=== PATIENT | male | born 1950 | race Caucasian/White ===

== ENCOUNTER 2017-12-02 08:26 | Emergency (ER) | payer MEDICARE, OTHER, SELFPAY ==
[2017-12-02] VITALS (21 sets, daily range): BP systolic 93–159; BP diastolic 48–99; PULSE 62–139; RESP 12–18; TEMP 36.7; O2SAT 93–100; BMI 25.0
--- NOTE | 2017-12-02 08:45 | ED.ARRPALP ---
HPI - Arrhythmia/Palpitations General Chief Complaint: Arrhythmia/Palpitations Stated Complaint: tachycardia Time Seen by Provider: 12/02/17 08:36 Source: patient Mode of arrival: ambulatory Limitations: no limitations History of Present Illness HPI narrative: 66-year-old male with a history atrial fibrillation on Coumadin presents to the emergency department with a chief complaint of palpitations and rapid heart rate since this morning. He denies chest pain nor shortness of breath. He is not dizzy nor weak or lightheaded. He has had cardioversion 3 times in his history but not since 2010. He states he recently switched from diltiazem to her rapid male due to cost MD complaint: rapid heart beat, heart racing and palpitations Onset (ago): hour(s) Duration: constant Severity: moderate Arrhythmia history: atrial fibrillation and on anti-coagulants Associated symptoms: denies other symptoms Related Data Home Medications Medication Instructions Recorded Confirmed aspirin 81 mg PO DAILY #0 04/06/13 12/02/17 insulin regular human [Humulin R 8 u SUB-Q BID #0 04/06/13 12/02/17 Regular U-100 Insuln] insulin glargine [Lantus U-100 6 unit SUB-Q BEDTIME 12/02/17 12/02/17 Insulin] insulin glargine [Lantus U-100 35 unit SUB-Q DAILY 12/02/17 12/02/17 Insulin] oxybutynin chloride 5 mg PO DAILY 12/02/17 12/02/17 quinapril-hydrochlorothiazide 2 tab PO DAILY 12/02/17 12/02/17 tamsulosin 0.8 mg PO DAILY 12/02/17 12/02/17 verapamil 120 mg PO DAILY 12/02/17 12/02/17 warfarin 5 mg PO DAILY 12/02/17 12/02/17 zolpidem 5 mg PO BEDTIME PRN 12/02/17 12/02/17 Allergies Allergy/AdvReac Type Severity Reaction Status Date / Time Sorsvoa-Jst-Dda Reductase AdvReac Intermediate Muscle Pain Verified 12/02/17 10:43 Inhibitor Review of Systems Review of Systems All systems reviewed & are unremarkable except as noted in HPI and below Constitutional Denies chills, Denies fever(s), Denies lethargy and Denies weakness Eyes Denies change in vision, Denies eye discharge, Denies irritation and Denies loss of vision ENT Ears, Nose, Mouth, and Throat: Denies change in voice, Denies neck pain and Denies sore throat Cardiovascular Denies chest pain, Denies irregular heart rhythm, Denies lightheadedness, Denies palpitations, Denies dyspnea, Denies dyspnea on exertion and Denies orthopnea Respiratory Denies cough, Denies dyspnea, Denies dyspnea on exertion and Denies wheezing Gastrointestinal Gastrointestinal: Denies abdominal pain, Denies change in bowel habits, Denies diarrhea, Denies nausea and Denies vomiting Genitourinary Denies hematuria, Denies flank pain, Denies urinary incontinence and Denies urinary urgency Musculoskeletal Denies neck pain Integumentary/Breasts Denies pruritus, Denies erythema, Denies rash and Denies wounds Neurologic Denies confusion, Denies loss of vision and Denies weakness Psychiatric Denies anxiety, Denies confusion, Denies depression, Denies homicidal ideation and Denies suicidal ideation Endocrine Denies palpitations Hematologic/Lymphatic Denies easy bruising Allergic/Immunologic Denies wheezing PFSH Medical History Anticoagulant long-term use (Acute) Atrial fibrillation and flutter (Acute) Diabetes (Acute) High blood pressure (Acute) High cholesterol (Acute) Exam Initial Vital Signs Initial Vital Signs: Vital Signs Temperature 98.1 F 12/02/17 08:36 Pulse Rate 139 H 12/02/17 08:36 Respiratory Rate 14 12/02/17 08:36 Blood Pressure 159/99 H 12/02/17 08:36 Pulse Oximetry 100 12/02/17 08:36 Procedures Procedural Sedation Indication: cardioversion ASA Class: II Mallampati Airway Classification: Class I Preparation: research lab assistant applied, pulse oximeter, capnometry used, supplemental O2 applied, suction/airway equipment at bedside and IV secured IV Propofol dose (mg): 75 ED Sedation Level: Moderate (Concious) Patient Tolerated Procedure: Well Complications: none Additional Comments: Electrical Cardioversion: Indication: [] A time-out was completed verifying correct patient, procedure and site. Informed consent was obtained. The patient was judged to be a satisfactory for the procedure. An intravenous access was established. Monitoring equipment was set-up. The resuscitative cart was nearby. Anesthesia: The patient was given an intravenous dose of [propofol 80 mg] After satisfactory anesthesia was achieved, the procedure was performed. The paddles were placed in the standard position. Synchronized, direct current electrical cardioversion was performed with [50 joules]. The patient tolerated the procedure well. There were no complications. Post Procedure: Successful cardioversion [was achieved.] Post procedure cardiac monitoring demonstrated [normal sinus rhythm in the 60s]. Course Orders Ordered: ED Orders 12/02/17 08:45 Basic Metabolic Panel Stat Complete Blood Count AUTO DIFF Stat Magnesium Stat Thyroid Stimulating Hormone Stat Troponin with CK Cardiac Panel Stat Sodium Chloride (Normal Saline 0.9%) 1,000 mls @ 150 mls/hr IV CONT STEPHY Last Admin: 12/02/17 10:43 Dose: 150 mls/hr Discontinued Medications Diltiazem HCl (Cardizem) 10 mg IV NOW ONE Stop: 12/02/17 10:52 Last Admin: 12/02/17 10:53 Dose: 10 mg Propofol (Diprivan) 75 mg 1 mg/kg (75 mg) IV NOW ONE Stop: 12/02/17 12:03 Last Admin: 12/02/17 12:11 Dose: 75 mg Vital Signs - 8 hr 12/02/17 08:36 12/02/17 09:11 12/02/17 10:06 Temperature 98.1 F Pulse Rate 139 H 88 80 Respiratory Rate 14 14 14 Blood Pressure 159/99 H Blood Pressure [Left Arm] 138/88 H 132/82 H Pulse Oximetry 100 99 99 12/02/17 10:41 12/02/17 10:53 12/02/17 11:00 Temperature Pulse Rate 136 H 122 H 89 Respiratory Rate 14 17 Blood Pressure 124/82 H Blood Pressure [Left Arm] 93/64 137/53 H Pulse Oximetry 99 12/02/17 11:11 12/02/17 11:34 12/02/17 12:08 Temperature Pulse Rate 87 126 H 114 H Respiratory Rate 12 14 12 Blood Pressure Blood Pressure [Left Arm] 137/53 H 134/88 H Pulse Oximetry 99 99 12/02/17 12:21 12/02/17 12:30 Temperature Pulse Rate 62 65 Respiratory Rate Blood Pressure Blood Pressure [Left Arm] 134/74 H 136/78 H Pulse Oximetry 93 97 MDM - Arrhythmia/Palpitations Lab Data Result diagrams: 12/02/17 08:45 12/02/17 08:45 Lab Results 12/02/17 12/02/17 12/02/17 Range/Units 08:45 08:45 08:45 WBC 7.0 (4.5-11.0) X10^3/uL RBC 4.94 (4.5-5.9) X10^6/uL Hgb 15.4 (13.5-17.5) g/dL Hct 44.5 (41-53) % MCV 90.2 (80-100) fL MCH 31.1 (26-34) PG MCHC 34.5 (30-36) % RDW 13.2 (11.6-14.8) % Plt Count 296 (150-400) X10^3/uL Neut % (Auto) 61.1 (50-75) % Lymph % (Auto) 25.2 (25-40) % [place] % (Auto) 11.0 (3-14) % Eos % (Auto) 1.9 L (2-4) % Baso % (Auto) 0.8 (0-2) % Neut # (Auto) 4300 (0567-1474) /uL Sodium 135 L (137-145) mmol/L Potassium 4.0 (3.4-5.1) mmol/L Chloride 95 L (98-107) mmol/L Carbon Dioxide 28 (22-32) mmol/L BUN 17 (9-20) mg/dL Creatinine 0.90 (0.66-1.25) mg/dL Estimated GFR > 60.0 (>60) mL/min BUN/Creatinine Ratio 18.9 (6-22) Glucose 100 (80-110) mg/dL Calcium 9.8 (8.4-10.2) mg/dL Magnesium 2.0 (1.6-2.3) mg/dL Total Creatine Kinase 102 (55-170) U/L CK-MB (CK-2) 1.78 (<2.37) ng/mL CK-MB (CK-2) Rel Index 1.7 (1.5-5.0) % Troponin I < 0.012 (0.01-0.034) ng/mL TSH 2.78 (0.47-4.68) uIU/mL Discharge Plan Departure Patient Disposition: Home, Self-Care Clinical Impression: Atrial flutter Instructions: DI for Atrial Flutter Activity Restrictions/Additional Instructions: *You have been diagnosed with [ rapid atrial flutter ] *What to do: *Take medications as directed *Follow up with your primary care provider in 2-3 days *Return to ER if you should have any new, worsening or concerning symptoms Prescriptions: No Action insulin regular human [Humulin R Regular U-100 Insuln] 100 UNIT/1 ML solution 8 u Sub-Q BID Qty: 0 RF: 0 aspirin 81 MG tablet,delayed release (DR/EC) 81 mg PO DAILY Qty: 0 RF: 0 verapamil 120 mg Tablet Extended Release 120 mg PO DAILY RF: 0 insulin glargine [Lantus U-100 Insulin] 100 unit/mL Solution 35 unit SUB-Q DAILY RF: 0 insulin glargine [Lantus U-100 Insulin] 100 unit/mL Solution 6 unit SUB-Q BEDTIME RF: 0 tamsulosin 0.4 mg Capsule,Extended Release 24hr 0.8 mg PO DAILY RF: 0 warfarin 5 mg Tablet 5 mg PO DAILY RF: 0 zolpidem 5 mg Tablet 5 mg PO BEDTIME PRN (Reason: Insomnia) RF: 0 quinapril-hydrochlorothiazide 20-12.5 mg Tablet 2 tab PO DAILY RF: 0 oxybutynin chloride 5 mg Tablet 5 mg PO DAILY RF: 0
[2017-12-02 09:00] LABS: Add Manual Diff / Slide Review NO; Basophils Percent Auto 0.8 % (0-2); Eosinophils Percent Auto 1.9 % (2-4); Hematocrit 44.5 % (41-53); Hemoglobin 15.4 g/dL (13.5-17.5); Lymphocytes Percent Auto 25.2 % (25-40); Mean Corpuscular HGB Conc 34.5 % (30-36); Mean Corpuscular Hemoglobin 31.1 PG (26-34); Mean Corpuscular Volume 90.2 fL (80-100); Neutrophils Absolute Auto 4300 /uL (3000-5900); Neutrophils Percent Auto 61.1 % (50-75); Platelet Count 296 X10^3/uL (150-400); Red Blood Cell Count 4.94 X10^6/uL (4.5-5.9); Red Cell Distribution Width 13.2 % (11.6-14.8)
[2017-12-02 09:07] LABS: BUN Creatinine Ratio 18.9 (6-22); Blood Urea Nitrogen 17 mg/dL (9-20); Calcium 9.8 mg/dL (8.4-10.2); Carbon Dioxide 28 mmol/L (22-32); Chloride 95 mmol/L (98-107); Creatine Kinase 102 U/L (55-170); Estimated Glomerular Filt Rate > 60.0 mL/min (>60); Glucose 100 mg/dL (80-110); HEMOLYSIS 45 (0-50); Sodium 135 mmol/L (137-145)
[2017-12-02 09:22] LABS: CKMB % Relative Index 1.7 % (1.5-5.0); Creatine Kinase MB 1.78 ng/mL (<2.37)
[2017-12-02 09:30] LABS: Troponin I < 0.012 ng/mL (0.01-0.034)
[2017-12-02 09:43] LABS: Thyroid Stimulating Hormone 2.78 uIU/mL (0.47-4.68)
[2017-12-02] MEDS: SODIUM CHLORIDE 0.9% 1,000 ML 150 ML IV (10:43)
[2017-12-02] MEDS: dilTIAZem 25 MG/5 ML SDV 10 MG IV (10:53)
[2017-12-02] MEDS: PROPOFOL 200 MG/20 ML VIAL 75 MG IV (12:11)
== END 2017-12-02 13:08 | disposition home or self-care (01) ==
PROVIDERS: Emergency Provider Emergency Medicine; Family Provider Registered Nurse; PCP Registered Nurse
DX: I48.92 Unspecified atrial flutter (principal)
CPT/HCPCS: 36591; 80048; 82550; 82553; 83735; 84443; 84484; 85025; 92960; 93005; 93041; 94770; 96361; 96374; 96375; 99152; 99285; J2704

== ENCOUNTER → 2018-03-06 07:13 | Outpatient (CLI) | payer MEDICARE, OTHER, SELFPAY ==
[2018-03-06 08:08] LABS: Add Manual Diff / Slide Review NO; Basophils Percent Auto 0.4 % (0-2); Eosinophils Percent Auto 4.5 % (2-4); Hematocrit 43.1 % (41-53); Lymphocytes Percent Auto 21.3 % (25-40); Mean Corpuscular HGB Conc 34.8 % (30-36); Mean Corpuscular Hemoglobin 31.2 PG (26-34); Mean Corpuscular Volume 89.4 fL (80-100); Monocytes Percent Auto 8.8 % (3-14); Neutrophils Absolute Auto 4000 /uL (3000-5900); Platelet Count 300 X10^3/uL (150-400); Red Blood Cell Count 4.82 X10^6/uL (4.5-5.9); Red Cell Distribution Width 13.2 % (11.6-14.8); White Blood Cell Count 6.1 X10^3/uL (4.5-11.0)
[2018-03-06 08:21] LABS: Blood Urea Nitrogen 14 mg/dL (9-20); Calcium 9.7 mg/dL (8.4-10.2); Carbon Dioxide 34 mmol/L (22-32); Chloride 99 mmol/L (98-107); Cholesterol 197 mg/dL (140-199); Estimated Glomerular Filt Rate > 60.0 mL/min (>60); Glucose 101 mg/dL (80-110); HDL Cholesterol 78 mg/dL (40-60); HEMOLYSIS < 15 (0-50); LDL Cholesterol Calculated 111 mg/dL (<100); Potassium 4.2 mmol/L (3.4-5.1); Sodium 138 mmol/L (137-145); Triglycerides 42 mg/dL (35-150)
[2018-03-06 08:46] LABS: Hemoglobin A1C% w Est Avg Glu 7.1 % (4.0-6.0)
[2018-03-06 09:55] LABS: Thyroid Stimulating Hormone 2.86 uIU/mL (0.47-4.68)
== END ==
PROVIDERS: PCP Registered Nurse; Visit Provider Registered Nurse
DX: E10.9 Type 1 diabetes mellitus without complications (principal); I10 Essential (primary) hypertension; Z95.2 Presence of prosthetic heart valve; E78.00 Pure hypercholesterolemia, unspecified; R53.83 Other fatigue
CPT/HCPCS: 36415; 80048; 80061; 83036; 84443; 85025

== ENCOUNTER → 2018-08-18 07:51 | Outpatient (CLI) | payer MEDICARE, OTHER, SELFPAY ==
[2018-08-18 09:03] LABS: Hemoglobin A1C% w Est Avg Glu 7.6 % (4.0-6.0)
[2018-08-18 09:04] LABS: INR 3.3 (0.9-1.3); Prothrombin Time 38.7 SECONDS (10.1-12.7)
[2018-08-18 09:06] LABS: Add Manual Diff / Slide Review NO; Basophils Absolute Auto 0 /uL (0-100); Basophils Percent Auto 0.7 % (0-2); Eosinophils Absolute Auto 200 /uL (0-450); Eosinophils Percent Auto 2.5 % (2-4); Hemoglobin 14.3 g/dL (13.5-17.5); Lymphocytes Absolute Auto 1500 /uL (1100-4500); Lymphocytes Percent Auto 22.2 % (25-40); Mean Corpuscular HGB Conc 34.1 % (30-36); Mean Corpuscular Hemoglobin 30.6 PG (26-34); Mean Corpuscular Volume 89.8 fL (80-100); Monocytes Absolute Auto 700 /uL (0-900); Monocytes Percent Auto 10.5 % (3-14); Neutrophils Absolute Auto 4400 /uL (1500-7000); Neutrophils Percent Auto 64.1 % (50-75); Platelet Count 398 X10^3/uL (150-400); Red Blood Cell Count 4.68 X10^6/uL (4.5-5.9); Red Cell Distribution Width 13.2 % (11.6-14.8); White Blood Cell Count 6.8 X10^3/uL (4.5-11.0)
[2018-08-18 09:18] LABS: Creatinine Urine Random 140.7 mg/dL
[2018-08-18 09:24] LABS: Microalbumi Creatinin Ratio Ur 6.3 ug/mg CR (<30); Microalbumin Urine Random 0.9 mg/dL (0-1.6)
[2018-08-18 09:25] LABS: Alanine Aminotransferase 49 IU/L (21-72); Albumin 4.2 g/dL (3.5-5.0); Albumin Globulin Ratio 1.6 (1.0-2.8); Alkaline Phosphatase 55 U/L (38-126); Aspartate Aminotransferase 40 IU/L (17-59); BUN Creatinine Ratio 21.1 (6-22); Bilirubin Total 0.7 mg/dL (0.2-1.3); Blood Urea Nitrogen 19 mg/dL (9-20); Calcium 9.7 mg/dL (8.4-10.2); Carbon Dioxide 32 mmol/L (22-32); Chloride 95 mmol/L (98-107); Cholesterol 198 mg/dL (140-199); Estimated Glomerular Filt Rate > 60.0 mL/min (>60); Globulin 2.7 g/dL (1.7-4.1); Glucose 127 mg/dL (80-110); HDL Cholesterol 63 mg/dL (40-60); HEMOLYSIS < 15 (0-50); LDL Cholesterol Calculated 125 mg/dL (<100); Potassium 4.5 mmol/L (3.4-5.1); Sodium 135 mmol/L (137-145); Total Protein 6.9 g/dL (6.3-8.2); Triglycerides 51 mg/dL (35-150)
[2018-08-18 09:35] LABS: Vitamin D 25 Hydroxy (D3) 66.8 ng/mL (30.0-100.0)
[2018-08-18 09:49] LABS: Thyroid Stimulating Hormone 2.18 uIU/mL (0.47-4.68)
[2018-08-18 09:51] LABS: C-Reactive Protein Quant < 0.5 mg/dL (<1.0)
[2018-08-18 10:10] LABS: Vitamin B12 760 pg/mL (239-931)
== END ==
PROVIDERS: PCP Registered Nurse; Visit Provider Registered Nurse
DX: E10.9 Type 1 diabetes mellitus without complications (principal); I10 Essential (primary) hypertension; Z95.2 Presence of prosthetic heart valve; E78.00 Pure hypercholesterolemia, unspecified
CPT/HCPCS: 36415; 80053; 80061; 82043; 82306; 82570; 82607; 83036; 84153; 84443; 85025; 85610; 86140

== ENCOUNTER → 2018-08-22 07:11 | Outpatient (CLI) | payer MEDICARE, OTHER, SELFPAY ==
--- NOTE | 2018-08-22 | DI.MRI.S_ITS ---
PROCEDURE: MR HEAD/BRAIN WO CON INDICATIONS: Personal history of transient ischemic attack TECHNIQUE: Non-contrast axial T1 spin echo, axial T2 fast spin echo, sagittal and axial FLAIR, coronal T2 fast spin echo, axial gradient echo, axial diffusion and ADC through the brain. COMPARISON: [facility], CT, HEAD WITHOUT CONTRAST, 02/18/2014, 11:38. FINDINGS: Image quality: Excellent. CSF spaces: Ventricles appear symmetric in size and shape. Basal cisterns are patent. No extra-axial fluid collections. Brain: No intracranial bleeds or mass effects. There is cerebral volume loss for age. There are periventricular and deep white matter chronic small vessel ischemic changes. There is high FLAIR signal intensity within the posterior commissure of the corpus callosum measuring 20 mm transverse by 20 mm anteroposterior. Patchy high FLAIR signal intensity within the pericallosal white matter is present, with a few small lesions demonstrating long axes perpendicular to the lateral ventricular long axes. Brainstem appears normal. Diffusion-weighted images show no acute ischemic insults. No chronic ischemic insults. Normal intravascular flow voids are present. Skull and face: Calvarial bone marrow is normal in signal. Orbits are normal. Sinuses: A small amount of mastoid fluid is present bilaterally. IMPRESSION: 1. White matter disease within the callosal and pericallosal white matter as described above. This may represent multiple sclerosis. Clinical correlation/workup is recommended, if clinically indicated. Contrast-enhanced brain MRI is recommended for further assessment. 2. Mild volume loss and small vessel ischemic disease. Dictated by: Terry Cohen M.D. on 08/22/2018 at 10:27 Approved by: Terry Cohen M.D. on 08/22/2018 at 10:39
== END ==
PROVIDERS: PCP Registered Nurse; Visit Provider Registered Nurse
DX: R51 Headache (principal); H53.9 Unspecified visual disturbance; I48.91 Unspecified atrial fibrillation; Z86.73 Personal history of transient ischemic attack (TIA), and cerebral infarction without residual deficits
CPT/HCPCS: 70551

== ENCOUNTER → 2018-12-14 16:52 | Outpatient (CLI) | payer MEDICARE, OTHER, SELFPAY ==
[2018-12-18 16:00] LABS: Rubeola Measles IgG > 300.00 AU/mL (< 25.00)
[2018-12-19 07:47] LABS: Hepatitis A Antibody Total Reactive (Nonreactive); Hepatitis B Surf AB Imm QUANT < 5 mIU/mL (> 9)
== END ==
PROVIDERS: PCP Registered Nurse; Visit Provider Registered Nurse
DX: Z01.84 Encounter for antibody response examination (principal)
CPT/HCPCS: 36415; 86317; 86708; 86735; 86762; 86765

== ENCOUNTER → 2019-01-22 06:48 | Outpatient (CLI) | payer MEDICARE, OTHER, SELFPAY ==
[2019-01-22 08:03] LABS: Hematocrit 43.4 % (41-53); Hemoglobin 14.9 g/dL (13.5-17.5); Mean Corpuscular HGB Conc 34.2 % (30-36); Mean Corpuscular Volume 90.8 fL (80-100); Platelet Count 273 X10^3/uL (150-400); Red Blood Cell Count 4.79 X10^6/uL (4.5-5.9); Red Cell Distribution Width 13.4 % (11.6-14.8)
[2019-01-22 08:07] LABS: Hemoglobin A1C% w Est Avg Glu 8.1 % (4.0-6.0)
[2019-01-22 08:12] LABS: Alanine Aminotransferase 34 IU/L (21-72); Albumin 4.1 g/dL (3.5-5.0); Albumin Globulin Ratio 1.5 (1.0-2.8); Alkaline Phosphatase 48 U/L (38-126); Aspartate Aminotransferase 36 IU/L (17-59); Bilirubin Total 0.7 mg/dL (0.2-1.3); Blood Urea Nitrogen 18 mg/dL (9-20); Calcium 9.7 mg/dL (8.4-10.2); Carbon Dioxide 34 mmol/L (22-32); Chloride 98 mmol/L (98-107); Cholesterol 193 mg/dL (140-199); Estimated Glomerular Filt Rate > 60.0 mL/min (>60); Globulin 2.8 g/dL (1.7-4.1); Glucose 98 mg/dL (80-110); HDL Cholesterol 78 mg/dL (40-60); HEMOLYSIS < 15 (0-50); LDL Cholesterol Calculated 105 mg/dL (<100); Potassium 4.5 mmol/L (3.4-5.1); Sodium 138 mmol/L (137-145); Total Protein 6.9 g/dL (6.3-8.2); Triglycerides 51 mg/dL (35-150)
[2019-01-22 08:42] LABS: Prostate Specific Antigen 4.04 ng/mL (0.10-4.00)
== END ==
PROVIDERS: Family Provider Urology; PCP Registered Nurse; Visit Provider Internal Medicine Endocrinology, Diabetes & Metabolism
DX: E10.9 Type 1 diabetes mellitus without complications (principal); I10 Essential (primary) hypertension; E78.00 Pure hypercholesterolemia, unspecified; I48.91 Unspecified atrial fibrillation; R97.20 Elevated prostate specific antigen [PSA]; N40.1 Benign prostatic hyperplasia with lower urinary tract symptoms
CPT/HCPCS: 36415; 80053; 80061; 83036; 84153; 85027

== ENCOUNTER → 2019-05-17 06:56 | Outpatient (CLI) | payer MEDICARE, OTHER, SELFPAY ==
[2019-05-17 09:24] LABS: Alanine Aminotransferase 31 IU/L (<50); Cholesterol 226 mg/dL (140-199); HDL Cholesterol 82 mg/dL (40-60); LDL Cholesterol Calculated 135 mg/dL (<100); Triglycerides 47 mg/dL (35-150)
== END ==
PROVIDERS: Family Provider Registered Nurse; PCP Registered Nurse; Visit Provider Internal Medicine Endocrinology, Diabetes & Metabolism
DX: E10.9 Type 1 diabetes mellitus without complications (principal)
CPT/HCPCS: 36415; 80061; 84460

== ENCOUNTER 2019-05-29 13:55 | Emergency (ER) | payer MEDICARE, OTHER, SELFPAY ==
[2019-05-29 14:12] VITALS: BP 181/72; PULSE 69; RESP 18; TEMP 37.5; O2SAT 98; BMI 24.6
[2019-05-29 15:31] LABS: Add Manual Diff / Slide Review NO; Basophils Absolute Auto 0 /uL (0-100); Basophils Percent Auto 0.5 % (0-2); Eosinophils Absolute Auto 200 /uL (0-450); Eosinophils Percent Auto 2.3 % (2-4); Hematocrit 42.2 % (41-53); Hemoglobin 14.4 g/dL (13.5-17.5); Lymphocytes Absolute Auto 1200 /uL (1100-4500); Lymphocytes Percent Auto 16.7 % (25-40); Mean Corpuscular HGB Conc 34.2 % (30-36); Mean Corpuscular Hemoglobin 30.9 PG (26-34); Mean Corpuscular Volume 90.5 fL (80-100); Monocytes Absolute Auto 500 /uL (0-900); Monocytes Percent Auto 7.4 % (3-14); Neutrophils Absolute Auto 5200 /uL (1500-7000); Neutrophils Percent Auto 73.1 % (50-75); Platelet Count 278 X10^3/uL (150-400); Red Blood Cell Count 4.67 X10^6/uL (4.5-5.9); White Blood Cell Count 7.1 X10^3/uL (4.5-11.0)
[2019-05-29 15:40] LABS: Alanine Aminotransferase 29 IU/L (<50); Albumin 4.5 g/dL (3.5-5.0); Albumin Globulin Ratio 1.6 (1.0-2.8); Alkaline Phosphatase 56 U/L (38-126); Aspartate Aminotransferase 41 IU/L (17-59); Bilirubin Total 0.6 mg/dL (0.2-1.3); Blood Urea Nitrogen 19 mg/dL (9-20); Calcium 9.7 mg/dL (8.4-10.2); Carbon Dioxide 32 mmol/L (22-32); Chloride 96 mmol/L (98-107); Estimated Glomerular Filt Rate > 60.0 mL/min (>60); Globulin 2.9 g/dL (1.7-4.1); Glucose 189 mg/dL (80-110); HEMOLYSIS < 15 (0-50); Lipase 88 U/L (23-300); Potassium 4.1 mmol/L (3.4-5.1); Sodium 134 mmol/L (137-145); Total Protein 7.4 g/dL (6.3-8.2)
[2019-05-29 16:13] LABS: Bacteria Urine None Seen; RBC Urine None Seen (0-5/HPF); WBC Urine None Seen (0-5/HPF)
[2019-05-29 16:18] LABS: Culture Indicated Urine Cult Not Indicated; Urine Comments Microscopic Normal
--- NOTE | 2019-05-29 18:09 | ED_ITS ---
HPI - Abdominal Pain General Chief Complaint: Abdominal Pain Stated Complaint: ABDOMINAL PAIN Time Seen by Provider: 05/29/19 18:09 Source: patient Mode of arrival: Ambulatory Limitations: no limitations History of Present Illness HPI narrative: 68-year-old male comes to the ER with complaint of right upper quadrant pain that is particularly worse today but has been intermittent for last 5-7 days. Patient has had intermittent abdominal pain for the last 4-6 months. He will occasionally feel nauseated. No vomiting. No fevers, sometimes feels chilled. He states that his stools are typically solid to constipated but he has occasionally had liquidy stools. He denies black or bloody stools. He has had no urinary issues. He is on Coumadin for a [place] aortic valve, he is a insulin-dependent diabetic and takes medication for hypertension and red yeast rice for dyslipidemia. Patient denies any other surgeries besides his aortic valve. He is scheduled for a endoscopy and colonoscopy after the new year. Related Data Home Medications Medication Instructions Recorded Confirmed aspirin 81 mg PO DAILY #0 04/06/13 12/02/17 insulin regular human [Humulin R 8 u SUB-Q BID #0 04/06/13 12/02/17 Regular U-100 Insuln] insulin glargine [Lantus U-100 6 unit SUB-Q BEDTIME 12/02/17 12/02/17 Insulin] insulin glargine [Lantus U-100 35 unit SUB-Q DAILY 12/02/17 12/02/17 Insulin] oxybutynin chloride 5 mg PO DAILY 12/02/17 12/02/17 quinapril-hydrochlorothiazide 2 tab PO DAILY 12/02/17 05/29/19 tamsulosin 0.8 mg PO DAILY 12/02/17 05/29/19 verapamil 120 mg PO DAILY 12/02/17 12/02/17 warfarin 5 mg PO DAILY 12/02/17 05/29/19 diltiazem HCl [DILT-XR] 180 mg PO DAILY 05/29/19 05/29/19 enoxaparin 05/29/19 zolpidem 10 mg PO BEDTIME PRN 05/29/19 05/29/19 Allergies Allergy/AdvReac Type Severity Reaction Status Date / Time Bjghlmy-Zld-Uuj Reductase AdvReac Intermediate Muscle Pain Verified 05/29/19 14:12 Inhibitor Review of Systems Review of Systems ROS Unobtainable: All systems reviewed & are unremarkable except as noted in HPI and below Patient History Medical History (Updated 05/29/19 @ 19:43 by Candace Moura DO) Anticoagulant long-term use (Acute) Atrial fibrillation and flutter (Acute) Diabetes (Acute) High blood pressure (Acute) High cholesterol (Acute) Surgical History (Updated 05/29/19 @ 18:27 by Candace Moura DO) H/O aortic valve replacement (Acute) Social History Smoking Status: Never smoker Substance Use Type: does not use Exam Narrative Exam Narrative: GENERAL: Alert and oriented x three, well-nourished male in no a cute distress. HEENT: Head normocephalic, atraumatic, EOMI, pupils reactive, face symmetric, moist mucous membranes NECK: Supple, full range of motion CARDIOVASCULAR: Regular rate and rhythm without murmurs, rubs or gallops. RESPIRATORY: Breath sounds equal bilaterally, no wheezes rales or rhonchi. ABDOMEN: Soft, positive for right upper quadrant tenderness. Minimal right lower quadrant tenderness. Normoactive bowel sounds all 4 quadrants. No guarding or rebound, rigidity, no mass. Patient does have a blood sugar monitoring device on his right lower abdomen. : No CVA tenderness EXTREMITIES: Normal range of motion, no clubbing or edema. Neurovascularly intact NEUROLOGICAL: Cranial nerves II through XII grossly intact. Moving all extremities SKIN: Warm, dry, no petechiae, no rashes or lesions. Initial Vital Signs Initial Vital Signs: Vital Signs Temperature 99.5 F 05/29/19 14:12 Pulse Rate 69 05/29/19 14:12 Respiratory Rate 18 05/29/19 14:12 Blood Pressure 181/72 H 05/29/19 14:12 Pulse Oximetry 98 05/29/19 14:12 Course Orders Ordered: ED Orders 05/29/19 18:23 CT abdomen pelvis w con Stat Discontinued Medications Sodium Chloride (Normal Saline 0.9%) 1,000 mls @ 1,000 mls/hr IV BOLUS ONE Stop: 05/29/19 19:22 Last Infusion: 05/29/19 19:59 Dose: 1,000 mls/hr [facility] Admin: 05/29/19 19:37 Dose: 1,000 mls/hr Documented by: ARRINGTO Vital Signs Vital signs: Vital Signs - 8 hr 05/29/19 18:50 05/29/19 19:02 Pulse Rate 54 L 65 Respiratory Rate 16 21 Blood Pressure [Left Arm] 200/57 H Pulse Oximetry 100 100 MDM - Abdominal Pain Lab Data Attestation: I reviewed the patient's lab results. Result diagrams: 05/29/19 15:15 05/29/19 15:15 Labs: Lab Results 05/29/19 05/29/19 05/29/19 Range/Units 15:15 15:15 16:12 WBC 7.1 (4.5-11.0) X10^3/uL RBC 4.67 (4.5-5.9) X10^6/uL Hgb 14.4 (13.5-17.5) g/dL Hct 42.2 (41-53) % MCV 90.5 (80-100) fL MCH 30.9 (26-34) PG MCHC 34.2 (30-36) % RDW 13.0 (11.6-14.8) % Plt Count 278 (150-400) X10^3/uL Neut % (Auto) 73.1 (50-75) % Lymph % (Auto) 16.7 L (25-40) % [place] % (Auto) 7.4 (3-14) % Eos % (Auto) 2.3 (2-4) % Baso % (Auto) 0.5 (0-2) % Neut # (Auto) 5200 (7125-9730) /uL Lymph # (Auto) 1200 (4799-8330) /uL [place] # (Auto) 500 (0-900) /uL Eos # (Auto) 200 (0-450) /uL Baso # (Auto) 0 (0-100) /uL Sodium 134 L (137-145) mmol/L Potassium 4.1 (3.4-5.1) mmol/L Chloride 96 L (98-107) mmol/L Carbon Dioxide 32 (22-32) mmol/L BUN 19 (9-20) mg/dL Creatinine 1.00 (0.66-1.25) mg/dL Estimated GFR > 60.0 (>60) mL/min BUN/Creatinine Ratio 19.0 (6-22) Glucose 189 H (80-110) mg/dL Calcium 9.7 (8.4-10.2) mg/dL Total Bilirubin 0.6 (0.2-1.3) mg/dL AST 41 (17-59) IU/L ALT 29 (<50) IU/L Alkaline Phosphatase 56 (38-126) U/L Total Protein 7.4 (6.3-8.2) g/dL Albumin 4.5 (3.5-5.0) g/dL Globulin 2.9 (1.7-4.1) g/dL Albumin/Globulin Ratio 1.6 (1.0-2.8) Lipase 88 (23-300) U/L Urine RBC None seen (0-5/HPF) Urine WBC None seen (0-5/HPF) Urine Bacteria None seen (None) Ur Culture Indicated? Cult not indicated Micro UA Comment Microscopic normal Point of care testing: Urine Dip Bedside Urine Glucose 100 mg/dl Bedside Urine Bilirubin - Negative Bedside Urine Ketone - Negative Urine Specific [place] 1.015 Bedside Urine Occult Blood - Negative Bedside Urine pH 6.5 Bedside Urine Protein - Negative Bedside Urine Urobilinogen - Negative Bedside Urine Nitrite - Negative Bedside Urine Leukocytes - Negative Esterase Imaging Data CT scan - abdomen: Radiologist's impression: [place] [address] CT Scan Report Signed Patient: Manav Echeverria JMR#: [id number] : 1950Acct:[id number] Age/Sex: 68 / MDate of Service: 05/29/19 Loc: ED Accession Number: [id number] Procedure: CT abdomen pelvis w con Ordering Provider: Candace Moura D.O. PROCEDURE: CT ABDOMEN PELVIS W CON INDICATIONS: RUQ pain, intermittent TECHNIQUE: After the administration of intravenous contrast, 5 mm thick sections acquired from the diaphragm to the symphysis. 5 mm coronal and sagittal reformats were acquired. For radiation dose reduction, the following was used: automated exposure control, adjustment of mA and/or kV according to patient size. COMPARISON: None. FINDINGS: Image quality: Excellent. ABDOMEN: Lung bases: Left basilar scarring/atelectasis is seen. Right lung base is clear.. Heart size is normal. Solid organs: Liver is normal in size and enhancement. Gallbladder contains a small calcified stone in its dependent portion. No gallbladder wall thickening or pericholecystic fluid. There is no intrahepatic biliary ductal dilatation. Borderline prominent common bile that is seen measures up to 6 mm in diameter which is within normal limits for patient's age. Pancreas enhances normally. Spleen is normal in size and enhancement. No adrenal nodules. Kidneys demonstrate normal size and enhancement, without hydronephrosis. 5.5 cm exophytic cyst in lower pole of left kidney is seen. Peritoneum and bowel: Bowel loops demonstrate normal wall thickness and caliber. No free fluid or air. Mild fecal stasis throughout the colon is noted. Nodes and vessels: No retroperitoneal or mesenteric adenopathy by size criteria. Aorta and inferior vena cava are normal in size. Miscellaneous: No ventral hernias. PELVIS: Genitourinary: Bladder wall thickness is normal. Enlarged prostate gland is seen with mass effect on the floor of urinary bladder. Miscellaneous: No inguinal hernias or adenopathy. Bones: No suspicious bony lesions. No vertebral body compression fractures. Minimal retrolisthesis of L2 on L3 is seen. IMPRESSION: 1. Tiny gallstone. No CT evidence of acute cholecystitis. Borderline prominent common bile that which is still within upper limits of normal for patient's age. No gross intrahepatic biliary ductal dilatation. 2. Mild constipation. No bowel obstruction. No free fluid or free air. 3. No renal stone or hydronephrosis. Left renal cyst as above. 4. Enlarged prostate gland with mass effect on floor of urinary bladder. Dictated by: Jhon Acuna M.D. on 05/29/2019 at 19:28 Approved by: Jhon Acuna M.D. on 05/29/2019 at 19:32 MDM Narrative Medical decision making narrative: Patient comes in with complaint of right uppe r quadrant pain with intermittent symptoms over several months but particularly the last 5-7 days. Patient is mostly tender in the right upper quadrant, labs do not show any major abnormalities. We discussed ultrasound but he has had issues with his cecal valve and colon issues in the past so CT was selected. Patient's CT shows tiny gallstone, no evidence of acute cholecystitis. Borderline prominent common bile duct that is within the upper limits of normal for patient's age. Pancreas enhances normally. No gross intrahepatic biliary ductal dilation. Mild constipation with no bowel obstruction no free fluid or free air. No renal stone or hydro, left renal cyst as above. Enlarged prostate with mass effect on the floor of the urinary bladder. Discussed with patient I suspect that he is having more biliary issues which might be related to his very small gallstone. I would recommend he follow up with primary care or the doctor that is doing his endoscopy in the next several weeks. We discussed signs and to watch for and reasons to return emergently. Discharge Plan Departure Patient Disposition: Home Clinical Impression: Gallstone, Abdominal pain Discharge Date/Time: 05/29/19 19:55 Instructions: DI for Gallstones Activity Restrictions/Additional Instructions: Follow-up with her physician in the next week for recheck. Call for an appointment. Your CT shows a very small gallstone, no clear signs of infection of the gallbladder. There is an enlarged prostate and it is noted that you have a left renal cyst which she should share with your primary care physician. Return to the ER for fevers greater 100.4 F, rapidly worsening or new pain, persistent vomiting, black or bloody stools, passing out, lightheadedness, new chest pain or shortness of breath or other new or concerning symptoms. Prescriptions: No Action insulin regular human [Humulin R Regular U-100 Insuln] 100 UNIT/1 ML solution 8 u Sub-Q BID Qty: 0 RF: 0 aspirin 81 MG tablet,delayed release (DR/EC) 81 mg PO DAILY Qty: 0 RF: 0 verapamil 120 mg Tablet Extended Release 120 mg PO DAILY RF: 0 insulin glargine [Lantus U-100 Insulin] 100 unit/mL Solution 35 unit SUB-Q DAILY RF: 0 insulin glargine [Lantus U-100 Insulin] 100 unit/mL Solution 6 unit SUB-Q BEDTIME RF: 0 tamsulosin 0.4 mg Capsule,Extended Release 24hr 0.8 mg PO DAILY RF: 0 warfarin 5 mg Tablet 5 mg PO DAILY RF: 0 quinapril-hydrochlorothiazide 20-12.5 mg Tablet 2 tab PO DAILY RF: 0 oxybutynin chloride 5 mg Tablet 5 mg PO DAILY RF: 0 zolpidem 10 mg tablet 10 mg PO BEDTIME PRN (Reason: Insomnia) RF: 0 diltiazem HCl [DILT-XR] 180 mg capsule,ext.rel 24h degradable 180 mg PO DAILY RF: 0 enoxaparin 300 mg/3 mL Solution RF: 0 Referrals: Jose Mon ARNP [Primary Care Provider] -
--- NOTE | 2019-05-29 18:23 | DI.CT.S_ITS ---
PROCEDURE: CT ABDOMEN PELVIS W CON INDICATIONS: RUQ pain, intermittent TECHNIQUE: After the administration of intravenous contrast, 5 mm thick sections acquired from the diaphragm to the symphysis. 5 mm coronal and sagittal reformats were acquired. For radiation dose reduction, the following was used: automated exposure control, adjustment of mA and/or kV according to patient size. COMPARISON: None. FINDINGS: Image quality: Excellent. ABDOMEN: Lung bases: Left basilar scarring/atelectasis is seen. Right lung base is clear.. Heart size is normal. Solid organs: Liver is normal in size and enhancement. Gallbladder contains a small calcified stone in its dependent portion. No gallbladder wall thickening or pericholecystic fluid. There is no intrahepatic biliary ductal dilatation. Borderline prominent common bile that is seen measures up to 6 mm in diameter which is within normal limits for patient's age. Pancreas enhances normally. Spleen is normal in size and enhancement. No adrenal nodules. Kidneys demonstrate normal size and enhancement, without hydronephrosis. 5.5 cm exophytic cyst in lower pole of left kidney is seen. Peritoneum and bowel: Bowel loops demonstrate normal wall thickness and caliber. No free fluid or air. Mild fecal stasis throughout the colon is noted. Nodes and vessels: No retroperitoneal or mesenteric adenopathy by size criteria. Aorta and inferior vena cava are normal in size. Miscellaneous: No ventral hernias. PELVIS: Genitourinary: Bladder wall thickness is normal. Enlarged prostate gland is seen with mass effect on the floor of urinary bladder. Miscellaneous: No inguinal hernias or adenopathy. Bones: No suspicious bony lesions. No vertebral body compression fractures. Minimal retrolisthesis of L2 on L3 is seen. IMPRESSION: 1. Tiny gallstone. No CT evidence of acute cholecystitis. Borderline prominent common bile that which is still within upper limits of normal for patient's age. No gross intrahepatic biliary ductal dilatation. 2. Mild constipation. No bowel obstruction. No free fluid or free air. 3. No renal stone or hydronephrosis. Left renal cyst as above. 4. Enlarged prostate gland with mass effect on floor of urinary bladder. Dictated by: Jhon Acuna M.D. on 05/29/2019 at 19:28 Approved by: Jhon Acuna M.D. on 05/29/2019 at 19:32
[2019-05-29 18:50] VITALS: PULSE 54; RESP 16; O2SAT 100
[2019-05-29 19:02] VITALS: BP 200/57; PULSE 65; RESP 21; O2SAT 100
[2019-05-29] MEDS: SODIUM CHLORIDE 0.9% 1,000 ML 1000 ML IV (19:37)
== END 2019-05-29 19:55 | disposition home or self-care (01) ==
PROVIDERS: Emergency Medicine; Emergency Provider Emergency Medicine; Family Provider Registered Nurse; PCP Registered Nurse
DX: K80.80 Other cholelithiasis without obstruction (principal); R10.11 Right upper quadrant pain; R11.0 Nausea; Z95.2 Presence of prosthetic heart valve; Z79.01 Long term (current) use of anticoagulants
CPT/HCPCS: 36415; 74177; 80053; 81003; 81015; 83690; 85025; 99283; 99284; Q9967

== ENCOUNTER → 2019-08-28 06:47 | Outpatient (CLI) | payer MEDICARE, OTHER, SELFPAY ==
[2019-08-28 07:28] LABS: Hematocrit 39.4 % (41-53); Hemoglobin 13.4 g/dL (13.5-17.5); Mean Corpuscular HGB Conc 33.9 % (30-36); Mean Corpuscular Hemoglobin 30.2 PG (26-34); Mean Corpuscular Volume 89.1 fL (80-100); Platelet Count 335 X10^3/uL (150-400); Red Blood Cell Count 4.42 X10^6/uL (4.5-5.9); Red Cell Distribution Width 13.5 % (11.6-14.8); White Blood Cell Count 4.5 X10^3/uL (4.5-11.0)
[2019-08-28 07:32] LABS: Creatinine Urine Random 108.9 mg/dL
[2019-08-28 07:36] LABS: Hemoglobin A1C% w Est Avg Glu 6.1 % (4.0-6.0)
[2019-08-28 07:37] LABS: Microalbumi Creatinin Ratio Ur 18.3 ug/mg CR (<30)
[2019-08-28 07:38] LABS: Iron 60 ug/dL (49-181)
[2019-08-28 07:42] LABS: Blood Urea Nitrogen 17 mg/dL (9-20); Calcium 9.8 mg/dL (8.4-10.2); Carbon Dioxide 32 mmol/L (22-32); Chloride 97 mmol/L (98-107); Cholesterol 217 mg/dL (140-199); Estimated Glomerular Filt Rate > 60.0 mL/min (>60); Glucose 240 mg/dL (80-110); HDL Cholesterol 84 mg/dL (40-60); HEMOLYSIS < 15 (0-50); LDL Cholesterol Calculated 123 mg/dL (<100); Sodium 135 mmol/L (137-145); Triglycerides 52 mg/dL (35-150)
[2019-08-28 07:49] LABS: Total Iron Binding Capacity 421 ug/dL (261-462)
== END ==
PROVIDERS: Family Provider Registered Nurse; PCP Registered Nurse; Referring Provider Registered Nurse; Visit Provider Registered Nurse
DX: E10.9 Type 1 diabetes mellitus without complications (principal); E78.00 Pure hypercholesterolemia, unspecified
CPT/HCPCS: 36415; 80048; 80061; 82043; 82570; 83036; 83540; 83550; 85027

== ENCOUNTER → 2019-09-27 06:51 | Outpatient (CLI) | payer MEDICARE, OTHER, SELFPAY ==
[2019-09-27 07:28] LABS: Hematocrit 43.8 % (41-53); Hemoglobin 14.5 g/dL (13.5-17.5); Mean Corpuscular Hemoglobin 29.8 PG (26-34); Mean Corpuscular Volume 90.4 fL (80-100); Platelet Count 299 X10^3/uL (150-400); Red Blood Cell Count 4.85 X10^6/uL (4.5-5.9); White Blood Cell Count 5.4 X10^3/uL (4.5-11.0)
[2019-09-27 08:10] LABS: HEMOLYSIS < 15 (0-50); Iron 80 ug/dL (49-181)
[2019-09-27 08:21] LABS: Percent Iron Saturation 21 % (20-50); Total Iron Binding Capacity 382 ug/dL (261-462); Transferrin 303 mg/dL (206-381)
[2019-09-27 10:20] LABS: Ferritin 21 ng/mL (18-464)
== END ==
PROVIDERS: Family Provider Registered Nurse; PCP Registered Nurse; Referring Provider Registered Nurse; Visit Provider Registered Nurse
DX: D50.9 Iron deficiency anemia, unspecified (principal)
CPT/HCPCS: 36415; 82728; 83540; 83550; 85027

== ENCOUNTER → 2019-11-01 10:09 | Outpatient (CLI) | payer MEDICARE, OTHER, SELFPAY ==
[2019-11-01 12:30] LABS: Prostate Specific Antigen 4.25 ng/mL (0.10-4.00)
== END ==
PROVIDERS: Family Provider Registered Nurse; PCP Registered Nurse; Referring Provider Urology; Visit Provider Urology
DX: R39.9 Unspecified symptoms and signs involving the genitourinary system (principal); R35.1 Nocturia
CPT/HCPCS: 36415; 84153

== ENCOUNTER → 2019-11-07 06:54 | Outpatient (CLI) | payer MEDICARE, OTHER, SELFPAY ==
[2019-11-07 08:09] LABS: Hematocrit 43.5 % (41-53); Hemoglobin 14.8 g/dL (13.5-17.5); Mean Corpuscular HGB Conc 34.1 % (30-36); Mean Corpuscular Hemoglobin 30.1 PG (26-34); Mean Corpuscular Volume 88.2 fL (80-100); Platelet Count 273 X10^3/uL (150-400); Red Blood Cell Count 4.94 X10^6/uL (4.5-5.9); Red Cell Distribution Width 14.6 % (11.6-14.8); White Blood Cell Count 4.7 X10^3/uL (4.5-11.0)
[2019-11-07 08:33] LABS: Blood Urea Nitrogen 14 mg/dL (9-20); Calcium 9.7 mg/dL (8.4-10.2); Carbon Dioxide 32 mmol/L (22-32); Chloride 96 mmol/L (98-107); Estimated Glomerular Filt Rate > 60.0 mL/min (>60); Glucose 234 mg/dL (80-110); HEMOLYSIS < 15 (0-50); Potassium 4.3 mmol/L (3.4-5.1); Sodium 134 mmol/L (137-145)
[2019-11-07 09:04] LABS: Ferritin 34 ng/mL (18-464)
== END ==
PROVIDERS: Family Provider Registered Nurse; PCP Registered Nurse; Referring Provider Registered Nurse; Visit Provider Registered Nurse
DX: E10.9 Type 1 diabetes mellitus without complications (principal); E78.00 Pure hypercholesterolemia, unspecified; D62 Acute posthemorrhagic anemia
CPT/HCPCS: 36415; 80048; 82728; 85027

== ENCOUNTER → 2019-12-14 11:45 | Outpatient (CLI) | payer MEDICARE, OTHER, SELFPAY ==
[2019-12-14 12:15] LABS: Add Manual Diff / Slide Review NO; Basophils Absolute Auto 0 /uL (0-100); Basophils Percent Auto 0.3 % (0-2); Eosinophils Absolute Auto 0 /uL (0-450); Eosinophils Percent Auto 0.5 % (2-4); Hematocrit 30.6 % (41-53); Hemoglobin 10.8 g/dL (13.5-17.5); Lymphocytes Absolute Auto 800 /uL (1100-4500); Lymphocytes Percent Auto 8.7 % (25-40); Mean Corpuscular HGB Conc 35.2 % (30-36); Mean Corpuscular Hemoglobin 31.2 PG (26-34); Mean Corpuscular Volume 88.4 fL (80-100); Monocytes Absolute Auto 800 /uL (0-900); Monocytes Percent Auto 8.8 % (3-14); Neutrophils Absolute Auto 7500 /uL (1500-7000); Neutrophils Percent Auto 81.7 % (50-75); Platelet Count 205 X10^3/uL (150-400); Red Blood Cell Count 3.46 X10^6/uL (4.5-5.9); Red Cell Distribution Width 14.2 % (11.6-14.8); White Blood Cell Count 9.1 X10^3/uL (4.5-11.0)
== END ==
PROVIDERS: Family Provider Registered Nurse; PCP Registered Nurse; Referring Provider Nurse Practitioner Family; Visit Provider Nurse Practitioner Family
DX: R73.9 Hyperglycemia, unspecified (principal); K91.840 Postprocedural hemorrhage of a digestive system organ or structure following a digestive system procedure
CPT/HCPCS: 36415; 85025

== ENCOUNTER 2019-12-18 07:25 | Emergency (ER) | payer MEDICARE, OTHER, SELFPAY ==
[2019-12-18 07:25] VITALS: BP 149/66; PULSE 63; RESP 18; TEMP 36.7; O2SAT 100; BMI 23.6
--- NOTE | 2019-12-18 07:26 | ED_ITS ---
HPI - General Adult General Chief complaint: Seizure Stated complaint: Seizure Time Seen by Provider: 12/18/19 07:26 History of Present Illness HPI narrative: 68-year-old type 1 diabetic with a history of paroxysmal atrial fibrillation for which he is anticoagulated, mitral valve replacement, 2 prior strokes presents with a seizure this morning. He has no prior history of seizure. He apparently got up at 6:00 a.m. was feeling fine. Took his usual morning insulin (this morning 18 units of NovoLog for a blood sugar of 300) and his was trimming his hair when he began feeling dizzy she helped him to the bedroom and then he woke up with medics in the bedroom slightly postictal. No reports of biting his tongue no urinary incontinence. Blood sugar at that time was 161. In reviewing his electronic blood sugars over the last couple of days he did have a sugar around 60 at 4:00 a.m. this mornings. Is on arrival in the emergency room he slightly slowed but is able to give a completely coherent history. One is he describes being somewhat tired but no headache is. Over the last days he does not report any significant changes to his overall health. No fever, cough, chills, chest pain, dyspnea, edema, erratic blood sugars, excessive fatigue, or abdominal pain. He does note that on Friday 12/08, he had a large polyp removed via colonoscopy. There was some bleeding complications and he had a 2nd colonoscopy on 12/[address] a clip at the bleeding site. He was told he did not need a blood transfusion at that time. He has not noticed any additional bleeding since the intervention. Related Data Home Medications Medication Instructions Recorded Confirmed aspirin 81 mg PO DAILY #0 04/06/13 12/02/17 insulin regular human [Humulin R 8 u SUB-Q BID #0 04/06/13 12/02/17 Regular U-100 Insuln] insulin glargine [Lantus U-100 6 unit SUB-Q BEDTIME 12/02/17 12/02/17 Insulin] insulin glargine [Lantus U-100 35 unit SUB-Q DAILY 12/02/17 12/02/17 Insulin] oxybutynin chloride 5 mg PO DAILY 12/02/17 12/02/17 quinapril-hydrochlorothiazide 2 tab PO DAILY 12/02/17 05/29/19 tamsulosin 0.8 mg PO DAILY 12/02/17 05/29/19 verapamil 120 mg PO DAILY 12/02/17 12/02/17 warfarin 5 mg PO DAILY 12/02/17 05/29/19 diltiazem HCl [DILT-XR] 180 mg PO DAILY 05/29/19 05/29/19 enoxaparin 05/29/19 zolpidem 10 mg PO BEDTIME PRN 05/29/19 05/29/19 Allergies Allergy/AdvReac Type Severity Reaction Status Date / Time Evmhpul-Kyg-Nma Reductase AdvReac Intermediate Muscle Pain Verified 12/18/19 07:54 Inhibitor Review of Systems Review of Systems Narrative: Pertinent positive and negative findings as per HPI Remainder of review of systems is otherwise unremarkable for ENT: No sore throat, neck pain, ear pain CV: palpitations, dyspnea on exertion Respiratory: Cough, wheeze, dyspnea GI: Nausea, vomiting, : Dysuria, hematuria, flank pain MS: Muscle weakness, numbness, joint swelling or warmth Skin: Rashes, nonhealing lesions Neuro: Syncope, dizziness, tingling Endocrine: Fatigue, Patient History Medical History (Updated 12/18/19 @ 10:16 by Olesya Gaston MD) Anticoagulant long-term use (Acute) Atrial fibrillation and flutter (Acute) Diabetes (Acute) High blood pressure (Acute) High cholesterol (Acute) Surgical History (Updated 05/29/19 @ 18:27 by Candace Moura DO) H/O aortic valve replacement (Acute) Social History Smoking Status: Never smoker Exam Narrative Exam Narrative: General: Healthy appearing, in no acute distress. Able to give a complete and coherent history. Well-nourished well-developed HEENT: Moist mucous membranes, normal sclera with reactive pupils, no trauma to tongue or oral mucosa Neck: No JVD, supple Respiratory: Lungs are clear to auscultation, no wheezing no rales no rhonchi. Full and symmetrical air movement Cardiac: Regular rate and rhythm, + mitral click, no murmurs no bruits Abdomen: Soft nontender good bowel tones, no flank pain Skin: Warm and dry, no rashes Neurologic: Initial responses are somewhat slowed but rapidly improving. Grossly neurologically intact with no obvious asymmetries. Lower extremity reflexes are 4+ with 1+ be of clonus bilaterally Extremities: No trauma, well perfused Psych: Cooperative, appropriate insight and affect Initial Vital Signs Initial Vital Signs: Vital Signs Temperature 98.1 F 12/18/19 07:25 Pulse Rate 63 12/18/19 07:25 Respiratory Rate 18 12/18/19 07:25 Blood Pressure 149/66 H 12/18/19 07:25 Pulse Oximetry 100 12/18/19 07:25 Course Orders Ordered: ED Orders 12/18/19 07:49 CT head/brain wo con Stat EKG-12 Lead Stat 12/18/19 08:07 Complete Blood Count AUTO DIFF Stat Comprehensive Metabolic Panel Stat Magnesium Stat Procalcitonin Stat Prothrombin Time INR Stat Troponin I Stat 12/18/19 09:20 Urinalysis and Microscopic Stat 12/18/19 09:49 MR head/brain wo/w con Stat Lorazepam (Ativan) 2 mg IV PRN PRN PRN Reason: Seizures Discontinued Medications Insulin Glargine (Lantus Solostar (Pen)) 30 unit SUBCUT NOW ONE Stop: 12/18/19 10:16 Last Admin: 12/18/19 11:16 Dose: 27 unit Documented by: SRAVANTHI Cosigned by: ALEXANDER Vital Signs Vital signs: Vital Signs - 8 hr 12/18/19 07:25 12/18/19 08:40 12/18/19 09:19 Temperature 98.1 F Pulse Rate 63 63 62 Respiratory Rate 18 18 18 Blood Pressure 149/66 H Blood Pressure [Right Arm] 146/69 H 168/70 H Pulse Oximetry 100 97 97 12/18/19 09:26 12/18/19 11:35 12/18/19 12:00 Temperature Pulse Rate 59 L 72 63 Respiratory Rate 16 14 21 Blood Pressure Blood Pressure [Right Arm] 164/69 H 170/72 H 151/68 H Pulse Oximetry 100 100 98 Medical Decision Making Medical Records Medical records reviewed: Yes I reviewed the patient's medical records. Lab Data Lab results reviewed: Yes I reviewed the patient's lab results. Lab results narrative: Hematocrit is slightly lower after recent postprocedure bleed but stable at this time. Mildly elevated transaminases compared to May labs. Result diagrams: 12/18/19 08:07 12/18/19 08:07 Labs: Lab Results 12/18/19 12/18/19 12/18/19 Range/Units 08:07 08:07 08:07 WBC 7.0 (4.5-11.0) X10^3/uL RBC 3.21 L (4.5-5.9) X10^6/uL Hgb 10.0 L (13.5-17.5) g/dL Hct 28.5 L (41-53) % MCV 88.7 (80-100) fL MCH 31.2 (26-34) PG MCHC 35.1 (30-36) % RDW 14.3 (11.6-14.8) % Plt Count 316 (150-400) X10^3/uL Neut % (Auto) 69.1 (50-75) % Lymph % (Auto) 16.4 L (25-40) % [place] % (Auto) 11.1 (3-14) % Eos % (Auto) 2.7 (2-4) % Baso % (Auto) 0.7 (0-2) % Neut # (Auto) 4900 (8914-6905) /uL Lymph # (Auto) 1200 (3388-7027) /uL [place] # (Auto) 800 (0-900) /uL Eos # (Auto) 200 (0-450) /uL Baso # (Auto) 0 (0-100) /uL PT (10.1-12.7) SECONDS INR (0.9-1.3) Sodium 130 L (137-145) mmol/L Potassium 4.2 (3.4-5.1) mmol/L Chloride 95 L (98-107) mmol/L Carbon Dioxide 30 (22-32) mmol/L BUN 18 (9-20) mg/dL Creatinine 0.98 (0.66-1.25) mg/dL Estimated GFR > 60.0 (>60) mL/min BUN/Creatinine Ratio 18.4 (6-22) Glucose 106 (80-110) mg/dL Calcium 9.4 (8.4-10.2) mg/dL Magnesium 2.3 (1.6-2.3) mg/dL Total Bilirubin 0.3 (0.2-1.3) mg/dL AST 83 H (17-59) IU/L ALT 84 H (<50) IU/L Alkaline Phosphatase 57 (38-126) U/L Troponin I (0.01-0.034) ng/mL Total Protein 6.3 (6.3-8.2) g/dL Albumin 3.7 (3.5-5.0) g/dL Globulin 2.6 (1.7-4.1) g/dL Albumin/Globulin Ratio 1.4 (1.0-2.8) Procalcitonin < 0.05 (<0.5) ng/mL Urine Color Urine Appearance Urine pH (4.5-8.0) Ur Specific [place] (1.000-1.035) Urine Protein (Negative) Urine Glucose (UA) (Negative) g/dL Urine Ketones (NEGATIVE) Urine Occult Blood (Negative) Urine Nitrate (Negative) Urine Bilirubin (NEGATIVE) Urine Urobilinogen (0.2) E.U./dL Ur Leukocyte Esterase (NEGATIVE) Urine RBC (0-5/HPF) Urine WBC (0-5/HPF) Amorphous Sediment Urine Bacteria (None) Ur Culture Indicated? 12/18/19 12/18/19 12/18/19 Range/Units 08:07 08:07 09:20 WBC (4.5-11.0) X10^3/uL RBC (4.5-5.9) X10^6/uL Hgb (13.5-17.5) g/dL Hct (41-53) % MCV (80-100) fL MCH (26-34) PG MCHC (30-36) % RDW (11.6-14.8) % Plt Count (150-400) X10^3/uL Neut % (Auto) (50-75) % Lymph % (Auto) (25-40) % [place] % (Auto) (3-14) % Eos % (Auto) (2-4) % Baso % (Auto) (0-2) % Neut # (Auto) (9173-3658) /uL Lymph # (Auto) (9444-6523) /uL [place] # (Auto) (0-900) /uL Eos # (Auto) (0-450) /uL Baso # (Auto) (0-100) /uL PT 34.9 H (10.1-12.7) SECONDS INR 3.1 H (0.9-1.3) Sodium (137-145) mmol/L Potassium (3.4-5.1) mmol/L Chloride (98-107) mmol/L Carbon Dioxide (22-32) mmol/L BUN (9-20) mg/dL Creatinine (0.66-1.25) mg/dL Estimated GFR (>60) mL/min BUN/Creatinine Ratio (6-22) Glucose (80-110) mg/dL Calcium (8.4-10.2) mg/dL Magnesium (1.6-2.3) mg/dL Total Bilirubin (0.2-1.3) mg/dL AST (17-59) IU/L ALT (<50) IU/L Alkaline Phosphatase (38-126) U/L Troponin I < 0.012 (0.01-0.034) ng/mL Total Protein (6.3-8.2) g/dL Albumin (3.5-5.0) g/dL Globulin (1.7-4.1) g/dL Albumin/Globulin Ratio (1.0-2.8) Procalcitonin (<0.5) ng/mL Urine Color Yellow Urine Appearance Cloudy Urine pH 7.5 (4.5-8.0) Ur Specific [place] 1.015 (1.000-1.035) Urine Protein Negative (Negative) Urine Glucose (UA) Negative (Negative) g/dL Urine Ketones Negative (NEGATIVE) Urine Occult Blood Negative (Negative) Urine Nitrate Negative (Negative) Urine Bilirubin Negative (NEGATIVE) Urine Urobilinogen 0.2 (0.2) E.U./dL Ur Leukocyte Esterase Negative (NEGATIVE) Urine RBC None seen (0-5/HPF) Urine WBC None seen (0-5/HPF) Amorphous Sediment 4+ Urine Bacteria None seen (None) Ur Culture Indicated? Cult not indicated Point of Care Testing Glucose POC 223 Point of care testing: Point of Care Testing Glucose POC [address] scan - head: Radiologist's Impression: IMPRESSION: No acute intracranial abnormality. MRI could be considered if clinically warranted. Dictated by: Francisco Javier Stout M.D. on 12/18/2019 at 8:18 MRI brain: Radiologist's Impression: IMPRESSION: No evidence of acute ischemia. No abnormal enhancement. Scattered white matter signal changes in the callosal/pericallosal regions as before, with no interval change or enhancement. Dictated by: Fabricio Grimes M.D. on 12/18/2019 at 11:22 ECG Data Attestation: I personally reviewed and interpreted this ECG as follows: Interpretation: Sinus Isma at a rate of 55 Normal axis, incomplete right bundle branch block No ischemic changes or ST T wave abnormalities MDM Narrative Medical decision making narrative: Pt's neurologist is Dr Jael Dunn MD [facility] [phone] Candace Romano (partner Dr Dunn). Reviewed case. She recommended an MRI of the brain with and without contrast to completely rule out stroke. He apparently has a history of a traumatic brain injury in 2012. Recommended no driving for 6 months and as long as the MRI was unremarkable follow-up as an outpatient. If MRI suggests acute findings then will adapt plan to accommodate. MRI is unrevealing. Patient is doing well. No arrhythmias or concerns while on telemetry for his 4 hours in the emergency department today. He is safe for home discharge. I have given him a copy of the results of the MRI to share with his neurologist in suggest that he follow-up with his neurologist Discharge Plan Departure Patient Disposition: Home Clinical Impression: New onset seizure Instructions: DI for Seizure Disorder -- Adult Activity Restrictions/Additional Instructions: Thank you for coming in today With the description of the sensation that something was wrong, the description of the upper extremity movement and the postictal. After the event the most likely diagnosis at this point is a seizure. There is no evidence of int racranial hemorrhage on CT scan. No evidence of cardiac abnormality. And her blood sugar monitor indicates hypoglycemia was also not a factor this morning. Your MRI did not show an acute stroke, multiple sclerosis, masses tumors or obvious scars that might explain a new seizure. At this time, you are safe to go home and all of the obvious reasons for a seizure have been excluded. That also means that I do not have a full explanation for why you had the seizure today. Recommendation is no driving for 6 months after any seizures. Please follow-up with your neurologist and share the results of the MRI that was done today to see what she suggests in follow-up. It was a pleasure to actually meet you. I wish you the very best. Prescriptions: No Action insulin regular human [Humulin R Regular U-100 Insuln] 100 UNIT/1 ML solution 8 u Sub-Q BID Qty: 0 RF: 0 aspirin 81 MG tablet,delayed release (DR/EC) 81 mg PO DAILY Qty: 0 RF: 0 verapamil 120 mg Tablet Extended Release 120 mg PO DAILY RF: 0 insulin glargine [Lantus U-100 Insulin] 100 unit/mL Solution 35 unit SUB-Q DAILY RF: 0 insulin glargine [Lantus U-100 Insulin] 100 unit/mL Solution 6 unit SUB-Q BEDTIME RF: 0 tamsulosin 0.4 mg Capsule,Extended Release 24hr 0.8 mg PO DAILY RF: 0 warfarin 5 mg Tablet 5 mg PO DAILY RF: 0 quinapril-hydrochlorothiazide 20-12.5 mg Tablet 2 tab PO DAILY RF: 0 oxybutynin chloride 5 mg Tablet 5 mg PO DAILY RF: 0 zolpidem 10 mg tablet 10 mg PO BEDTIME PRN (Reason: Insomnia) RF: 0 diltiazem HCl [DILT-XR] 180 mg capsule,ext.rel 24h degradable 180 mg PO DAILY RF: 0 enoxaparin 300 mg/3 mL Solution RF: 0 Referrals: Jose Mon ARNP [Primary Care Provider] - Jael Fong MD [Non-Staff] -
--- NOTE | 2019-12-18 07:49 | DI.CT.S_ITS ---
PROCEDURE: CT HEAD/BRAIN WO CON INDICATIONS: First seizure TECHNIQUE: Noncontrast 4.5 mm thick angled axial sections acquired from the foramen magnum to the vertex, with coronal and sagittal reformats. For radiation dose reduction, the following was used: automated exposure control, adjustment of mA and/or kV according to patient size. COMPARISON: [facility], MR, MR HEAD/BRAIN WO CON, 08/22/2018, 9:11. FINDINGS: Image quality: Excellent. CSF spaces: Basal cisterns are patent. No extra-axial fluid collections. Passive expansion of the ventricles and extra-axial spaces as a function of global cerebral volume loss. Brain: No evidence of acute intracranial hemorrhage, mass effect, or midline shift. [place]-white matter interface is maintained. There is chronic microvascular ischemic change. Skull and face: Calvarium and visualized facial bones are intact, without suspicious lesions. Sinuses: Visualized sinuses and mastoids are clear. IMPRESSION: No acute intracranial abnormality. MRI could be considered if clinically warranted. Dictated by: Francisco Javier Stout M.D. on 12/18/2019 at 8:18 Approved by: Francisco Javier Stout M.D. on 12/18/2019 at 8:21
[2019-12-18 08:35] LABS: Alanine Aminotransferase 84 IU/L (<50); Albumin 3.7 g/dL (3.5-5.0); Albumin Globulin Ratio 1.4 (1.0-2.8); Alkaline Phosphatase 57 U/L (38-126); Aspartate Aminotransferase 83 IU/L (17-59); BUN Creatinine Ratio 18.4 (6-22); Bilirubin Total 0.3 mg/dL (0.2-1.3); Blood Urea Nitrogen 18 mg/dL (9-20); Calcium 9.4 mg/dL (8.4-10.2); Carbon Dioxide 30 mmol/L (22-32); Chloride 95 mmol/L (98-107); Estimated Glomerular Filt Rate > 60.0 mL/min (>60); Globulin 2.6 g/dL (1.7-4.1); Glucose 106 mg/dL (80-110); HEMOLYSIS < 15 (0-50); Magnesium 2.3 mg/dL (1.6-2.3); Potassium 4.2 mmol/L (3.4-5.1); Sodium 130 mmol/L (137-145); Total Protein 6.3 g/dL (6.3-8.2)
[2019-12-18 08:40] VITALS: BP 146/69; PULSE 63; RESP 18; O2SAT 97
[2019-12-18 09:12] LABS: Add Manual Diff / Slide Review NO; Basophils Absolute Auto 0 /uL (0-100); Basophils Percent Auto 0.7 % (0-2); Eosinophils Absolute Auto 200 /uL (0-450); Eosinophils Percent Auto 2.7 % (2-4); Hematocrit 28.5 % (41-53); Lymphocytes Absolute Auto 1200 /uL (1100-4500); Lymphocytes Percent Auto 16.4 % (25-40); Mean Corpuscular HGB Conc 35.1 % (30-36); Mean Corpuscular Hemoglobin 31.2 PG (26-34); Mean Corpuscular Volume 88.7 fL (80-100); Monocytes Absolute Auto 800 /uL (0-900); Monocytes Percent Auto 11.1 % (3-14); Neutrophils Absolute Auto 4900 /uL (1500-7000); Neutrophils Percent Auto 69.1 % (50-75); Platelet Count 316 X10^3/uL (150-400); Red Blood Cell Count 3.21 X10^6/uL (4.5-5.9); Red Cell Distribution Width 14.3 % (11.6-14.8)
[2019-12-18 09:19] VITALS: BP 168/70; PULSE 62; RESP 18; O2SAT 97
[2019-12-18 09:25] LABS: Bacteria Urine None Seen; RBC Urine None Seen (0-5/HPF); WBC Urine None Seen (0-5/HPF)
[2019-12-18 09:26] VITALS: BP 164/69; PULSE 59; RESP 16; O2SAT 100
[2019-12-18 09:26] LABS: Appearance Urine UA CLOUDY; Bilirubin Urine UA NEGATIVE (NEGATIVE); Color Urine UA YELLOW; Glucose Urine UA NEGATIVE (Negative); Ketones Urine UA NEGATIVE (NEGATIVE); Leukocyte Esterase Urine UA NEGATIVE (NEGATIVE); Nitrite Urine UA NEGATIVE (Negative); Occult Blood Urine UA NEGATIVE (Negative); Protein Urine UA NEGATIVE (Negative); Specific Gravity Urine UA 1.015 (1.000-1.035); Urobilinogen Urine UA 0.2 E.U./dL (0.2); pH Urine UA 7.5 (4.5-8.0)
[2019-12-18 09:38] LABS: Amorphous Sediment Urine 4+; Culture Indicated Urine Cult Not Indicated
--- NOTE | 2019-12-18 09:49 | DI.MRI.S_ITS ---
PROCEDURE: MR HEAD/BRAIN WO/W CON INDICATIONS: new onset seizure. Neurology requests. ? Stroke TECHNIQUE: Noncontrast axial T1 spin echo, axial T2 fast spin echo, sagittal and axial FLAIR, coronal T2 fast spin echo, axial gradient echo, axial diffusion and ADC through the brain. After the administration of contrast, axial and coronal T1 spin echo with fat saturation through the brain. COMPARISON: [facility], MR, MR HEAD/BRAIN WO CON, 08/22/2018, 9:11. [facility], CT, CT HEAD/BRAIN WO CON, 12/18/2019, 7:52. FINDINGS: Image quality: Excellent. CSF spaces: Basal cisterns are patent. No extra-axial fluid collections. Ventricles are normal in size and shape. Brain: No midline shift. No intracranial bleeds or masses. No abnormal intracranial enhancement. There is cerebral volume loss for age. There is periventricular white matter chronic small vessel ischemic change. The brainstem appears normal. Diffusion-weighted images demonstrate no acute ischemic insults. No chronic ischemic insults. Normal intravascular flow voids are present. Skull and face: Calvarial marrow is normal in signal. Orbits appear normal. Mild left maxillary sinus disease Trace left and mild right mastoid air cell fluid, which appears grossly unchanged IMPRESSION: No evidence of acute ischemia. No abnormal enhancement. Scattered white matter signal changes in the callosal/pericallosal regions as before, with no interval change or enhancement. Dictated by: Fabricio Grimes M.D. on 12/18/2019 at 11:22 Approved by: Fabricio Grimes M.D. on 12/18/2019 at 11:30
[2019-12-18 09:50] LABS: INR 3.1 (0.9-1.3); Prothrombin Time 34.9 SECONDS (10.1-12.7)
[2019-12-18 10:00] LABS: Procalcitonin < 0.05 ng/mL (<0.5)
--- NOTE | 2019-12-18 10:13 | PC.NURSE ---
Pt. refused to eat stating that his sugar was 150 and worried it would get too high if he ate something.
[2019-12-18 10:16] LABS: Troponin I < 0.012 ng/mL (0.01-0.034)
[2019-12-18] MEDS: INSULIN GLARGINE 100 UNIT/ML 3ML PEN 30 UNIT SUBCUT (11:16)
[2019-12-18 11:35] VITALS: BP 170/72; PULSE 72; RESP 14; O2SAT 100
[2019-12-18 12:00] VITALS: BP 151/68; PULSE 63; RESP 21; O2SAT 98
== END 2019-12-18 12:39 | disposition home or self-care (01) ==
PROVIDERS: Emergency Provider Emergency Medicine; Family Provider Registered Nurse; PCP Registered Nurse
DX: R56.9 Unspecified convulsions (principal); R00.1 Bradycardia, unspecified; E10.8 Type 1 diabetes mellitus with unspecified complications; Z79.4 Long term (current) use of insulin; I48.0 Paroxysmal atrial fibrillation; Z79.01 Long term (current) use of anticoagulants; Z95.5 Presence of coronary angioplasty implant and graft
CPT/HCPCS: 36415; 70450; 70553; 80053; 81001; 82962; 83735; 84145; 84484; 85025; 85610; 93005; 96372; 99284

== ENCOUNTER → 2019-12-27 08:11 | Outpatient (CLI) | payer MEDICARE, OTHER, SELFPAY ==
[2019-12-27 08:57] LABS: Hematocrit 33.8 % (41-53); Hemoglobin 11.8 g/dL (13.5-17.5); Mean Corpuscular HGB Conc 34.9 % (30-36); Mean Corpuscular Hemoglobin 31.2 PG (26-34); Mean Corpuscular Volume 89.4 fL (80-100); Platelet Count 632 X10^3/uL (150-400); Red Blood Cell Count 3.78 X10^6/uL (4.5-5.9); Red Cell Distribution Width 14.4 % (11.6-14.8); White Blood Cell Count 6.2 X10^3/uL (4.5-11.0)
[2019-12-27 09:27] LABS: Alanine Aminotransferase 32 IU/L (<50); Albumin 4.3 g/dL (3.5-5.0); Albumin Globulin Ratio 1.9 (1.0-2.8); Alkaline Phosphatase 58 U/L (38-126); Aspartate Aminotransferase 35 IU/L (17-59); Bilirubin Total 0.5 mg/dL (0.2-1.3); Bilirubin Unconjugated 0.5 mg/dL (0.0-1.1); Globulin 2.3 g/dL (1.7-4.1); HEMOLYSIS < 15 (0-50); Total Protein 6.6 g/dL (6.3-8.2)
== END ==
PROVIDERS: Family Provider Registered Nurse; PCP Registered Nurse; Referring Provider Registered Nurse; Visit Provider Registered Nurse
DX: D62 Acute posthemorrhagic anemia (principal); R56.9 Unspecified convulsions
CPT/HCPCS: 36415; 80076; 85027

== ENCOUNTER → 2020-01-01 06:43 | Outpatient (CLI) | payer MEDICARE, OTHER, SELFPAY ==
[2020-01-01 08:06] LABS: Hematocrit 33.3 % (41-53); Hemoglobin 11.1 g/dL (13.5-17.5); Mean Corpuscular HGB Conc 33.4 % (30-36); Mean Corpuscular Hemoglobin 30.2 PG (26-34); Mean Corpuscular Volume 90.3 fL (80-100); Platelet Count 519 X10^3/uL (150-400); Red Blood Cell Count 3.68 X10^6/uL (4.5-5.9); White Blood Cell Count 4.2 X10^3/uL (4.5-11.0)
[2020-01-01 08:10] LABS: Hemoglobin A1C% w Est Avg Glu 6.8 % (4.0-6.0)
[2020-01-01 08:21] LABS: BUN Creatinine Ratio 14.8 (6-22); Blood Urea Nitrogen 13 mg/dL (9-20); Calcium 9.3 mg/dL (8.4-10.2); Carbon Dioxide 32 mmol/L (22-32); Chloride 98 mmol/L (98-107); Cholesterol 166 mg/dL (140-199); Estimated Glomerular Filt Rate > 60.0 mL/min (>60); Glucose 169 mg/dL (80-110); HDL Cholesterol 68 mg/dL (40-60); HEMOLYSIS < 15 (0-50); LDL Cholesterol Calculated 85 mg/dL (<100); Potassium 4.4 mmol/L (3.4-5.1); Sodium 133 mmol/L (137-145); Triglycerides 66 mg/dL (35-150)
[2020-01-01 08:32] LABS: Creatinine Urine Random 88.3 mg/dL
[2020-01-01 08:37] LABS: Microalbumi Creatinin Ratio Ur 10.1 ug/mg CR (<30); Microalbumin Urine Random 0.9 mg/dL (0-1.6)
[2020-01-01 08:48] LABS: Prostate Specific Antigen 4.72 ng/mL (0.10-4.00)
[2020-01-01 08:52] LABS: Ferritin 19 ng/mL (18-464)
== END ==
PROVIDERS: Family Provider Registered Nurse; PCP Registered Nurse; Referring Provider Registered Nurse; Visit Provider Registered Nurse
DX: I10 Essential (primary) hypertension (principal); E78.00 Pure hypercholesterolemia, unspecified; E10.9 Type 1 diabetes mellitus without complications; D62 Acute posthemorrhagic anemia; N40.1 Benign prostatic hyperplasia with lower urinary tract symptoms
CPT/HCPCS: 36415; 80048; 80061; 82043; 82570; 82728; 83036; 84153; 85027

== ENCOUNTER → 2020-02-06 06:59 | Outpatient (CLI) | payer MEDICARE, OTHER, SELFPAY ==
[2020-02-06 08:25] LABS: Add Manual Diff / Slide Review NO; Basophils Absolute Auto 0 /uL (0-100); Basophils Percent Auto 0.4 % (0-2); Eosinophils Absolute Auto 100 /uL (0-450); Eosinophils Percent Auto 1.3 % (2-4); Hematocrit 39.3 % (41-53); Hemoglobin 13.5 g/dL (13.5-17.5); Lymphocytes Absolute Auto 1000 /uL (1100-4500); Lymphocytes Percent Auto 9.1 % (25-40); Mean Corpuscular HGB Conc 34.4 % (30-36); Mean Corpuscular Hemoglobin 31.1 PG (26-34); Mean Corpuscular Volume 90.4 fL (80-100); Monocytes Absolute Auto 800 /uL (0-900); Monocytes Percent Auto 7.4 % (3-14); Neutrophils Absolute Auto 8800 /uL (1500-7000); Neutrophils Percent Auto 81.8 % (50-75); Platelet Count 356 X10^3/uL (150-400); Red Blood Cell Count 4.35 X10^6/uL (4.5-5.9); Red Cell Distribution Width 13.7 % (11.6-14.8); White Blood Cell Count 10.7 X10^3/uL (4.5-11.0)
[2020-02-06 08:41] LABS: Iron 101 ug/dL (49-181)
[2020-02-06 08:50] LABS: Total Iron Binding Capacity 407 ug/dL (261-462)
[2020-02-06 09:03] LABS: Ferritin 16 ng/mL (18-464)
== END ==
PROVIDERS: Family Provider Registered Nurse; PCP Registered Nurse; Referring Provider Registered Nurse; Visit Provider Registered Nurse
DX: E10.9 Type 1 diabetes mellitus without complications (principal); E78.00 Pure hypercholesterolemia, unspecified
CPT/HCPCS: 36415; 82728; 83540; 83550; 85025

== ENCOUNTER → 2020-05-05 06:47 | Outpatient (CLI) | payer MEDICARE, OTHER, SELFPAY ==
[2020-05-06 07:09] LABS: PSA Free % 28.2 % (.); PSA, Total 4.4 ng/mL (0.0-4.0)
== END ==
PROVIDERS: Family Provider Registered Nurse; PCP Registered Nurse; Referring Provider Urology; Visit Provider Urology
DX: R39.9 Unspecified symptoms and signs involving the genitourinary system (principal)
CPT/HCPCS: 36415; 84153; 84154

== ENCOUNTER → 2020-06-30 06:54 | Outpatient (CLI) | payer MEDICARE, OTHER, SELFPAY ==
[2020-06-30 08:40] LABS: Hemoglobin A1C% w Est Avg Glu 6.3 % (4.0-6.0)
[2020-06-30 08:50] LABS: Add Manual Diff / Slide Review NO; Basophils Absolute Auto 0 /uL (0-100); Basophils Percent Auto 0.6 % (0-2); Eosinophils Absolute Auto 200 /uL (0-450); Eosinophils Percent Auto 4.4 % (2-4); Hematocrit 41.5 % (41-53); Hemoglobin 14.1 g/dL (13.5-17.5); Lymphocytes Absolute Auto 1100 /uL (1100-4500); Lymphocytes Percent Auto 20.8 % (25-40); Mean Corpuscular HGB Conc 34.1 % (30-36); Mean Corpuscular Volume 90.9 fL (80-100); Monocytes Absolute Auto 600 /uL (0-900); Monocytes Percent Auto 10.9 % (3-14); Neutrophils Absolute Auto 3300 /uL (1500-7000); Neutrophils Percent Auto 63.3 % (50-75); Platelet Count 323 X10^3/uL (150-400); Red Blood Cell Count 4.57 X10^6/uL (4.5-5.9); Red Cell Distribution Width 13.9 % (11.6-14.8); White Blood Cell Count 5.3 X10^3/uL (4.5-11.0)
== END ==
PROVIDERS: Family Provider Registered Nurse; PCP Registered Nurse; Referring Provider Registered Nurse; Visit Provider Internal Medicine Endocrinology, Diabetes & Metabolism
DX: E10.9 Type 1 diabetes mellitus without complications (principal)
CPT/HCPCS: 36415; 83036; 85025

== ENCOUNTER → 2021-05-04 06:47 | Outpatient (CLI) | payer MEDICARE, OTHER, SELFPAY ==
[2021-05-04 08:10] LABS: Albumin 4.2 g/dL (3.5-5.0); BUN Creatinine Ratio 16.9 (6-22); Blood Urea Nitrogen 20 mg/dL (9-20); Calcium 9.7 mg/dL (8.4-10.2); Carbon Dioxide 32 mmol/L (22-32); Chloride 97 mmol/L (98-107); Estimated Glomerular Filt Rate > 60.0 mL/min (>60); Glucose 155 mg/dL (80-110); HEMOLYSIS < 15 (0-50); Phosphorous 3.3 mg/dL (2.3-3.7); Potassium 4.5 mmol/L (3.4-5.1); Sodium 134 mmol/L (137-145)
[2021-05-04 09:27] LABS: Creatinine Urine Random 130.8 mg/dL
[2021-05-04 09:32] LABS: Microalbumi Creatinin Ratio Ur 7.6 ug/mg CR (<30)
[2021-05-05 09:42] LABS: PSA Free % 26.7 % (.); PSA, Total 5.1 ng/mL (0.0-4.0)
== END ==
PROVIDERS: Family Provider Registered Nurse; PCP Urology; Referring Provider Internal Medicine Endocrinology, Diabetes & Metabolism; Visit Provider Internal Medicine Endocrinology, Diabetes & Metabolism
DX: E10.9 Type 1 diabetes mellitus without complications (principal); Z12.5 Encounter for screening for malignant neoplasm of prostate
CPT/HCPCS: 36415; 80069; 82043; 82570; 83036; 84153; 84154

== ENCOUNTER → 2021-07-08 16:04 | Outpatient (CLI) | payer MEDICARE, OTHER, SELFPAY ==
[2021-07-08 17:41] LABS: LDL Cholesterol Direct 85 mg/dL (<100)
[2021-07-08 17:49] LABS: Vitamin D 25 Hydroxy (D3) 48.8 ng/mL (30.0-100.0)
== END ==
PROVIDERS: Family Provider Registered Nurse; PCP Urology; Referring Provider Internal Medicine Endocrinology, Diabetes & Metabolism; Visit Provider Internal Medicine Endocrinology, Diabetes & Metabolism
DX: E10.9 Type 1 diabetes mellitus without complications (principal); E55.9 Vitamin D deficiency, unspecified; E78.00 Pure hypercholesterolemia, unspecified
CPT/HCPCS: 36415; 82306; 83721

== ENCOUNTER → 2021-09-16 17:55 | Outpatient (CLI) | payer MEDICARE, OTHER, SELFPAY ==
--- NOTE | 2021-09-16 17:59 | DI.MRI.S_ITS ---
PROCEDURE: MR HEAD/BRAIN WO/W CON INDICATIONS: Hemiplegic migraine, intractable TECHNIQUE: Noncontrast axial T1 spin echo, axial T2 fast spin echo, sagittal and axial FLAIR, coronal T2 fast spin echo, axial gradient echo, axial diffusion and ADC through the brain. After the administration of contrast, axial and coronal T1 spin echo with fat saturation through the brain. COMPARISON: [facility], MR, MR HEAD/BRAIN WO/W CON, 12/18/2019, 10:35. FINDINGS: Image quality: Excellent. CSF spaces: Basal cisterns are patent. No extra-axial fluid collections. Ventricles are normal in size and shape. Brain: No midline shift. No intracranial bleeds or masses. No abnormal intracranial enhancement. There is cerebral volume loss for age. There is periventricular white matter chronic small vessel ischemic change. The brainstem appears normal. Diffusion-weighted images demonstrate no acute ischemic insults. No chronic ischemic insults. Normal intravascular flow voids are present. Skull and face: Calvarial marrow is normal in signal. Orbits appear normal. Sinuses: Sinuses demonstrate mucous retention cyst versus polyp in the left maxillary sinus. There is moderate fluid within the right and minimal left mastoid air cells, unchanged. IMPRESSION: 1. No acute intracranial process. 2. Moderate atrophy and chronic microvascular ischemic changes. 3. Persistent fluid within the mastoid air cells. Recommend correlation to potential mastoiditis. Dictated by: Tisha Mukherjee M.D. on 09/17/2021 at 9:11 Approved by: Tisha Mukherjee M.D. on 09/17/2021 at 9:13
== END ==
PROVIDERS: Family Provider Registered Nurse; PCP Urology; Referring Provider Nurse Practitioner Family; Visit Provider Nurse Practitioner Family
DX: G43.419 Hemiplegic migraine, intractable, without status migrainosus (principal)
CPT/HCPCS: 70553; A9579

== ENCOUNTER 2021-09-21 09:33 | Emergency (ER) | payer MEDICARE, OTHER, SELFPAY ==
[2021-09-21] VITALS (16 sets, daily range): BP systolic 118–217; BP diastolic 60–91; PULSE 61–83; RESP 14–26; TEMP 36.6; O2SAT 97–100; BMI 24.3
--- NOTE | 2021-09-21 10:09 | DI.RAD.S_ITS ---
PROCEDURE: XR CHEST 1V INDICATIONS: chest pain TECHNIQUE: One view of the chest was acquired. COMPARISON: [facility], , CHEST 2 VIEW, 07/13/2016, 15:57. FINDINGS: Surgical changes and devices: Status post median sternotomy. Lungs and pleura: Lungs are clear. No pleural effusions or pneumothorax. Mediastinum: Mediastinal contours appear normal. Heart size is normal. Bones and chest wall: No suspicious bony lesions. Overlying soft tissues appear unremarkable. IMPRESSION: No acute cardiopulmonary abnormality. Dictated by: Jaydon An M.D. on 09/21/2021 at 10:46 Approved by: Jaydon An M.D. on 09/21/2021 at 10:47
[2021-09-21 10:33] LABS: Add Manual Diff / Slide Review NO; Basophils Absolute Auto 0 /uL (0-100); Basophils Percent Auto 0.3 % (0-2); Eosinophils Absolute Auto 0 /uL (0-450); Eosinophils Percent Auto 0.4 % (2-4); Hematocrit 45.8 % (41-53); Hemoglobin 15.3 g/dL (13.5-17.5); Lymphocytes Absolute Auto 1100 /uL (1100-4500); Lymphocytes Percent Auto 11.5 % (25-40); Mean Corpuscular HGB Conc 33.4 % (30-36); Mean Corpuscular Hemoglobin 30.2 PG (26-34); Mean Corpuscular Volume 90.4 fL (80-100); Monocytes Absolute Auto 900 /uL (0-900); Monocytes Percent Auto 10.1 % (3-14); Neutrophils Absolute Auto 7300 /uL (1500-7000); Neutrophils Percent Auto 77.7 % (50-75); Platelet Count 296 X10^3/uL (150-400); Red Blood Cell Count 5.07 X10^6/uL (4.5-5.9); Red Cell Distribution Width 13.7 % (11.6-14.8); White Blood Cell Count 9.4 X10^3/uL (4.5-11.0)
[2021-09-21 10:43] LABS: Alanine Aminotransferase 23 IU/L (<50); Albumin 4.4 g/dL (3.5-5.0); Albumin Globulin Ratio 1.4 (1.0-2.8); Alkaline Phosphatase 66 U/L (38-126); Aspartate Aminotransferase 40 IU/L (17-59); BUN Creatinine Ratio 15.7 (6-22); Bilirubin Total 1.2 mg/dL (0.2-1.3); Blood Urea Nitrogen 17 mg/dL (9-20); Calcium 9.4 mg/dL (8.4-10.2); Carbon Dioxide 29 mmol/L (22-32); Chloride 98 mmol/L (98-107); Creatine Kinase 79 U/L (55-170); Estimated Glomerular Filt Rate > 60.0 mL/min (>60); Globulin 3.2 g/dL (1.7-4.1); Glucose 166 mg/dL (80-110); HEMOLYSIS 29 (0-50); Lipase 38 U/L (23-300); Potassium 4.3 mmol/L (3.4-5.1); Sodium 133 mmol/L (137-145); Total Protein 7.6 g/dL (6.3-8.2)
[2021-09-21 10:53] LABS: Troponin I 0.065 ng/mL (0.01-0.034)
--- NOTE | 2021-09-21 11:21 | ED.GENADULT ---
HPI - General Adult General Chief complaint: Dizziness Stated complaint: Dizzy, faint, bump growing on right restorationism Time Seen by Provider: 09/21/21 10:53 Source: patient Mode of arrival: Family Vehicle History of Present Illness HPI narrative: Patient is a 70-year-old male who is a insulin-dependent diabetic. Also has a history of high blood pressure. Has had strokes in the past. Recently had dental procedures done. Since the dental procedure he has had pain on the right side of his face and this morning started noticing swelling to his right temporal region. He denies any fevers. No problems swallowing. No vision changes. He also states he an episode of dizziness and lightheaded this is morning to the point where he thought that he was going to pass out. There actually was no loss of conscious. No palpitations. No chest pain. No shortness of breath. States he has been taking all his medications as directed. He did contact the dental provider who did his procedure who told him that it was trismus I gave him exercises to try however this was a couple days ago. Related Data Home Medications Medication Instructions Recorded Confirmed aspirin 81 mg tablet,delayed 81 mg PO DAILY #0 04/06/13 12/02/17 release insulin regular human 100 unit/mL 8 u SUB-Q BID #0 04/06/13 12/02/17 injection solution (Humulin R Regular U-100 Insulin) insulin glargine 100 unit/mL 6 unit SUB-Q BEDTIME 12/02/17 12/02/17 subcutaneous solution (Lantus U-100 Insulin) insulin glargine 100 unit/mL 35 unit SUB-Q DAILY 12/02/17 12/02/17 subcutaneous solution (Lantus U-100 Insulin) oxybutynin chloride 5 mg tablet 5 mg PO DAILY 12/02/17 12/02/17 quinapril 20 2 tab PO DAILY 12/02/17 05/29/19 mg-hydrochlorothiazide 12.5 mg tablet tamsulosin 0.4 mg capsule 0.8 mg PO DAILY 12/02/17 05/29/19 verapamil 120 mg tablet,extended 120 mg PO DAILY 12/02/17 12/02/17 release warfarin 5 mg tablet 5 mg PO DAILY 12/02/17 05/29/19 diltiazem HCl 180 mg 180 mg PO DAILY 05/29/19 05/29/19 capsule,extended release 24 hr, controlled (DILT-XR) enoxaparin 300 mg/3 mL 05/29/19 subcutaneous solution zolpidem 10 mg tablet 10 mg PO BEDTIME PRN 05/29/19 05/29/19 Allergies Allergy/AdvReac Type Severity Reaction Status Date / Time Oymtxqq-STK-DgH Reductase AdvReac Intermediate Muscle Pain Verified 09/21/21 10:02 Inhibitor [[place]-Sor-Fxj Reductase Inhibitor] Review of Systems Constitutional Constitutional: Reports as per HPI and Reports system reviewed and no additional complaints, except as documented Eyes Eyes: Reports as per HPI and Reports system reviewed and no additional complaints, except as documented ENT Ears, Nose, Mouth, and Throat: Reports system reviewed and no additional complaints, except as documented and Reports as per HPI Cardiovascular Cardiovascular: Reports as per HPI and Reports system reviewed and no additional complaints, except as documented Respiratory Respiratory: Reports as per HPI and Reports system reviewed and no additional complaints, except as documented Gastrointestinal Gastrointestinal: Reports system reviewed and no additional complaints, except as documented Musculoskeletal Musculoskeletal: Reports system reviewed and no additional complaints, except as documented Integumentary/Breasts Skin/Breast: Reports system reviewed and no additional complaints, except as documented Neurologic Neurologic: Reports system reviewed and no additional complaints, except as documented Hematologic/Lymphatic On Anticoagulants: No Patient History Medical History Anticoagulant long-term use Atrial fibrillation and flutter Diabetes High blood pressure High cholesterol Surgical History (Updated 05/29/19 @ 18:27 by Candace Moura DO) H/O aortic valve replacement Social History Smoking Status: Former smoker Smoking Status: Former smoker alcohol intake frequency: 0-2 drinks per day Substance Use Type: does not use Exam Initial Vital Signs Initial Vital Signs: Vital Signs Temperature 97.9 F 09/21/21 10:03 Pulse Rate 75 09/21/21 10:03 Respiratory Rate 19 09/21/21 10:03 Blood Pressure 118/65 09/21/21 10:03 Pulse Oximetry 99 09/21/21 10:03 Const General: cooperative, comfortable and well developed HENNE Head: other (Fullness right restorationism region) Nose: external nose normal Mouth: oral mucosae normal Throat: posterior oropharynx normal Eyes General: appearance normal, both eyes and all related structures Pupils: PERRL EOM: EOM intact bilaterally Resp Effort & Inspection: normal respiratory effort Auscultation: clear to auscultation bilaterally Cardio Rate: regular rate Rhythm: regular rhythm GI Inspection: normal to inspection Skin General: no rashes or lesions noted Neuro General: patient alert, patient awake, patient oriented x3 and moves all extremities Extrem General: normal to inspection Psych Appearance: grossly normal and well kempt Scores GCS Mayur coma scale eye opening: Spontaneous [place] coma scale verbal response: Orientated [place] coma scale motor response: Obey commands [place] coma scale total score: 15 Course Orders Ordered: ED Orders 09/21/21 11:35 CT facial bones w con Stat 09/21/21 12:34 Troponin I Stat Vital Signs Vital signs: Vital Signs - 8 hr 09/21/21 12:00 09/21/21 12:30 09/21/21 13:08 Pulse Rate 65 66 68 Respiratory Rate 14 19 19 Blood Pressure Pulse Oximetry 98 98 99 09/21/21 13:09 09/21/21 13:30 09/21/21 13:34 Pulse Rate 68 83 79 Respiratory Rate 18 20 18 Blood Pressure 180/77 H 212/91 H 189/88 H Pulse Oximetry 98 98 99 09/21/21 14:00 09/21/21 14:20 09/21/21 14:22 Pulse Rate 69 64 64 Respiratory Rate 26 H 24 20 Blood Pressure 217/88 H 196/91 H Pulse Oximetry 98 97 97 Medical Decision Making Medical Records Medical records reviewed: Yes I reviewed the patient's medical records. Lab Data Lab results reviewed: Yes I reviewed the patient's lab results. Result diagrams: 09/21/21 10:20 09/21/21 10:20 Labs: Lab Results 09/21/21 09/21/21 09/21/21 Range/Units 10:20 10:20 12:34 WBC 9.4 (4.5-11.0) X10^3/uL RBC 5.07 (4.5-5.9) X10^6/uL Hgb 15.3 (13.5-17.5) g/dL Hct 45.8 (41-53) % MCV 90.4 (80-100) fL MCH 30.2 (26-34) PG MCHC 33.4 (30-36) % RDW 13.7 (11.6-14.8) % Plt Count 296 (150-400) X10^3/uL Neut % (Auto) 77.7 H (50-75) % Lymph % (Auto) 11.5 L (25-40) % [place] % (Auto) 10.1 (3-14) % Eos % (Auto) 0.4 L (2-4) % Baso % (Auto) 0.3 (0-2) % Neut # (Auto) 7300 H (5293-9210) /uL Lymph # (Auto) 1100 (0976-7719) /uL [place] # (Auto) 900 (0-900) /uL Eos # (Auto) 0 (0-450) /uL Baso # (Auto) 0 (0-100) /uL Sodium 133 L (137-145) mmol/L Potassium 4.3 (3.4-5.1) mmol/L Chloride 98 (98-107) mmol/L Carbon Dioxide 29 (22-32) mmol/L BUN 17 (9-20) mg/dL Creatinine 1.08 (0.66-1.25) mg/dL Estimated GFR > 60.0 (>60) mL/min BUN/Creatinine Ratio 15.7 (6-22) Glucose 166 H (80-110) mg/dL Calcium 9.4 (8.4-10.2) mg/dL Magnesium 2.0 (1.6-2.3) mg/dL Total Bilirubin 1.2 (0.2-1.3) mg/dL AST 40 (17-59) IU/L ALT 23 (<50) IU/L Alkaline Phosphatase 66 (38-126) U/L Total Creatine Kinase 79 (55-170) U/L CK-MB (CK-2) TNP CK-MB (CK-2) Rel Index TNP Troponin I 0.065 H 0.054 H (0.01-0.034) ng/mL Total Protein 7.6 (6.3-8.2) g/dL Albumin 4.4 (3.5-5.0) g/dL Globulin 3.2 (1.7-4.1) g/dL Albumin/Globulin Ratio 1.4 (1.0-2.8) Lipase 38 (23-300) U/L Urine Dip Bedside Urine Glucose Negative Bedside Urine Bilirubin - Negative Bedside Urine Ketone + 15 Urine Specific [place] 1.010 Bedside Urine Occult Blood - Negative Bedside Urine pH 7.0 Bedside Urine Protein + 30 Bedside Urine Urobilinogen - Negative Bedside Urine Nitrite - Negative Bedside Urine Leukocytes - Negative Esterase Point of care testing: Urine Dip Bedside Urine Glucose Negative Bedside Urine Bilirubin - Negative Bedside Urine Ketone + 15 Urine Specific [place] 1.010 Bedside Urine Occult Blood - Negative Bedside Urine pH 7.0 Bedside Urine Protein + 30 Bedside Urine Urobilinogen - Negative Bedside Urine Nitrite - Negative Bedside Urine Leukocytes - Negative Esterase Imaging Data Chest x-ray: Radiologist's Impression: [address] [address] XRay Report Signed Patient: Manav Echeverria MR#: [id number] : 1950 Acct:[id number] Age/Sex: 70 / M Date of Service: 09/21/21 Loc: ED Accession Number: [id number] ?? Procedure: XR chest 1V Ordering Provider: Mark Ballesteros D.O. PROCEDURE:? XR CHEST 1V ? INDICATIONS:? chest pain ? TECHNIQUE:? One view of the chest was acquired.? ? COMPARISON:? [facility], , CHEST 2 VIEW, 07/13/2016, 15:57. ? FINDINGS:? ? Surgical changes and devices:? Status post median sternotomy. ? Lungs and pleura:? Lungs are clear.? No pleural effusions or pneumothorax.? ? Mediastinum:? Mediastinal contours appear normal.? Heart size is normal.? ? Bones and chest wall:? No suspicious bony lesions.? Overlying soft tissues appear unremarkable.? ? IMPRESSION:? No acute cardiopulmonary abnormality. ? ? Dictated by: Jaydon An M.D. on 09/21/2021 at 10:46 ? ? Approved by: Jaydon An M.D. on 09/21/2021 at 10:47? Facial x-ray: Radiologist's Impression: [address] [address] [address] Scan Report Signed Patient: Manav Echeverria MR#: [id number] : 1950 Acct:[id number] Age/Sex: 70 / M Date of Service: 09/21/21 Loc: ED Accession Number: [id number] ?? Procedure: CT facial bones w con Ordering Provider: Mark Ballesteros D.O. PROCEDURE:? CT FACIAL BONES W CON ? INDICATIONS:? swelling R temporal region eval for abscess ? TECHNIQUE:? After the administration of intravenous contrast, 2.5 mm axial sections acquired from the mid-neck to the frontal sinuses, with coronal and sagittal reformats.? For radiation dose reduction, the following was used:? automated exposure control, adjustment of mA and/or kV according to patient size.? ? COMPARISON:? [facility], CT, CT HEAD/BRAIN WO CON, 12/18/2019, 7:52.? [facility], MR, MR HEAD/BRAIN WO/W CON, 12/18/2019, 10:35.? [facility], MR, MR HEAD/BRAIN WO/W CON, 09/16/2021, 18:19. ? FINDINGS:? Image quality:? Excellent.? ? Soft tissues:? In this patient with this given history, scrutiny is given to area of clinical concern involving the right temporal region, where there is a skin marker, as on series 3, image 46. No masses or abnormal enhancement can be seen at this site.? Note is made that the subcutaneous fat is mildly thicker at this site than the contralateral left side measuring 14 mm in maximal thickness versus 10 mm. ? No edema, masses, or fluid collections.? No enlarged lymph nodes.? ? Vascular:? Visualized vascular structures appear patent throughout.? Bony vascular foramina and canals appear normal.? ? Bones:? Facial bones appear intact, without fractures, erosions, or destruction.? Visualized portions of the skull base and auditory canals also appear normal.? ? Sinuses:? At the inferior pole of the left maxillary sinus, there is a mucous retention cyst seen.? Paranasal sinuses are otherwise well aerated without fluid levels, mucosal thickening, or mucoceles.? Mastoid air cells are aerated.? IMPRESSION:? At the site of clinical concern, no masses or abnormal enhancement can be seen.? Negative for abscess. ? The subcutaneous fat is slightly thicker at the area of clinical concern within the right temporal region than the contralateral left temporal region.? This appears similar to the recent prior MRI dated 09/16/2021.? Incidental note is made of: Left maxillary sinus mucous retention cyst ? ? ? Dictated by: Hany Whitfield M.D. on 09/21/2021 at 10:59 ? ? Approved by: Hany Whitfield M.D. on 09/21/2021 at 11:03?? ECG Data Attestation: I personally reviewed and interpreted this ECG as follows: Interpretation: Sinus rhythm Ventricular rate is 65 Normal QRS Normal axis Artifact noted AVR aVL AVF No ST T wave changes MDM Narrative Medical decision making narrative: Patient does have fullness in his right restorationism region which he states appeared this morning. The overlying skin appears unremarkable. There is no signs of any infection. The rest of his HEENT exam is relatively unremarkable. CT scan does not show any signs of infection or abscess in this area. Unsure the exact etiology however the only finding was that there was a thicker fat pad in this area compared to the left side however this was seen on an MRI that was performed just recently as well. Patient denies chest pain. No shortness of breath. Did have an elevated troponin however repeat shows that this is decreased. He has no ischemic changes on his EKG. I was able to review his last cardiovascular note were he had a very extensive workup to include a stress echocardiogram 1 year ago. Had a discussion with him regarding this elevated troponin. We did discuss his increased risk of cardiovascular disease given his diabetes and hypertension and age and male gender. We did discuss admitting to the hospital for further risk stratification testing to include repeat stress test however the patient would like to hold on this for now. He will contact his primary doctor for follow-up. Despite this he was given strict return precautions and he expressed understanding agreement. It does not appear to be any infection that would require any antibiotics. Form him to follow-up with his dental provider. Discharge Plan Departure Patient Disposition: Home Clinical Impression: Facial pain, Hypertension Instructions: Essential Hypertension Activity Restrictions/Additional Instructions: Continues to take all of your medications as directed. 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 Return to the emergency department for any new or worsening symptoms Prescriptions: No Action insulin regular human [Humulin R Regular U-100 Insuln] 100 UNIT/1 ML solution 8 u Sub-Q BID Qty: 0 0RF Label Comments: takes at breakfast and dinner aspirin 81 MG tablet,delayed release (DR/EC) 81 mg PO DAILY Qty: 0 0RF verapamil 120 mg Tablet Extended Release 120 mg PO DAILY 0RF insulin glargine [Lantus U-100 Insulin] 100 unit/mL Solution 35 unit SUB-Q DAILY 0RF Label Comments: takes mid day insulin glargine [Lantus U-100 Insulin] 100 unit/mL Solution 6 unit SUB-Q BEDTIME 0RF tamsulosin 0.4 mg Capsule,Extended Release 24hr 0.8 mg PO DAILY 0RF warfarin 5 mg Tablet 5 mg PO DAILY 0RF quinapril-hydrochlorothiazide 20-12.5 mg Tablet 2 tab PO DAILY 0RF oxybutynin chloride 5 mg Tablet 5 mg PO DAILY 0RF zolpidem 10 mg tablet 10 mg PO BEDTIME PRN (Reason: Insomnia) 0RF diltiazem HCl [DILT-XR] 180 mg capsule,ext.rel 24h degradable 180 mg PO DAILY 0RF enoxaparin 300 mg/3 mL Solution 0RF Referrals: Javier Fleming DO [Primary Care Provider] -
--- NOTE | 2021-09-21 11:34 | PC.NURSE ---
Pt having pain on right side of face and feeling dizzy/ malaise for past two weeks sice dental procedure. Pt presents with swelling near right temporal and down jaw line. Rates pain an 8/10 while talking. Denies numbness and tingling. States having difficulty sleeping at night and frequent urination overnight.
--- NOTE | 2021-09-21 11:35 | DI.CT.S_ITS ---
PROCEDURE: CT FACIAL BONES W CON INDICATIONS: swelling R temporal region eval for abscess TECHNIQUE: After the administration of intravenous contrast, 2.5 mm axial sections acquired from the mid-neck to the frontal sinuses, with coronal and sagittal reformats. For radiation dose reduction, the following was used: automated exposure control, adjustment of mA and/or kV according to patient size. COMPARISON: [facility], CT, CT HEAD/BRAIN WO CON, 12/18/2019, 7:52. [facility], MR, MR HEAD/BRAIN WO/W CON, 12/18/2019, 10:35. [facility], MR, MR HEAD/BRAIN WO/W CON, 09/16/2021, 18:19. FINDINGS: Image quality: Excellent. Soft tissues: In this patient with this given history, scrutiny is given to area of clinical concern involving the right temporal region, where there is a skin marker, as on series 3, image 46. No masses or abnormal enhancement can be seen at this site. Note is made that the subcutaneous fat is mildly thicker at this site than the contralateral left side measuring 14 mm in maximal thickness versus 10 mm. No edema, masses, or fluid collections. No enlarged lymph nodes. Vascular: Visualized vascular structures appear patent throughout. Bony vascular foramina and canals appear normal. Bones: Facial bones appear intact, without fractures, erosions, or destruction. Visualized portions of the skull base and auditory canals also appear normal. Sinuses: At the inferior pole of the left maxillary sinus, there is a mucous retention cyst seen. Paranasal sinuses are otherwise well aerated without fluid levels, mucosal thickening, or mucoceles. Mastoid air cells are aerated. IMPRESSION: At the site of clinical concern, no masses or abnormal enhancement can be seen. Negative for abscess. The subcutaneous fat is slightly thicker at the area of clinical concern within the right temporal region than the contralateral left temporal region. This appears similar to the recent prior MRI dated 09/16/2021. Incidental note is made of: Left maxillary sinus mucous retention cyst Dictated by: Hany Whitfield M.D. on 09/21/2021 at 10:59 Approved by: Hany Whitfield M.D. on 09/21/2021 at 11:03
[2021-09-21 13:13] LABS: Troponin I 0.054 ng/mL (0.01-0.034)
== END 2021-09-21 14:30 | disposition home or self-care (01) ==
PROVIDERS: Emergency Provider Emergency Medicine; Family Provider Registered Nurse; PCP Urology
DX: R51.9 Headache, unspecified (principal); I10 Essential (primary) hypertension; Z87.891 Personal history of nicotine dependence
CPT/HCPCS: 36415; 70487; 71045; 80053; 81003; 82550; 83690; 83735; 84484; 85025; 93005; 99284

== ENCOUNTER → 2021-11-29 09:59 | Outpatient (CLI) | payer MEDICARE, OTHER, SELFPAY ==
--- NOTE | 2021-11-29 | DI.CT.S_ITS ---
PROCEDURE: CT CHEST WO CON INDICATIONS: Shortness of breath TECHNIQUE: Noncontrast 5 mm thick sections acquired from the pulmonary apices to the posterior costophrenic angles. 1 mm lung window, 5 mm thick coronal and sagittal and 7 mm axial MIP reformats were then acquired. For radiation dose reduction, the following was used: automated exposure control, adjustment of mA and/or kV according to patient size. COMPARISON: None. FINDINGS: Image quality: Excellent. Lungs and pleura: No acute air space opacities. No pleural effusions or pneumothorax. Central and peripheral airways are patent and normal in caliber. Mediastinum: Heart size is normal. No pericardial effusion. Mild to moderate coronary artery calcifications. Aortic valve prosthesis. No mediastinal adenopathy by size criteria. Thoracic aorta and central pulmonary arteries are normal in size. Esophagus is normal in caliber. No hiatal hernia. Bones and chest wall: Midline sternotomy wires. No suspicious bony lesions. Old mild T6 vertebral body compression. No axillary or supraclavicular adenopathy by size criteria. Thyroid gland is grossly unremarkable as visualized. . Abdomen: Visualized upper abdominal solid organs and bowel loops appear normal in the absence of contrast. IMPRESSION: 1. No evidence of acute pulmonary process. 2. Aortic valve prosthesis, coronary artery disease. 3. Mild old T6 vertebral compression. Dictated by: Abraham Shoemaker M.D. on 11/29/2021 at 11:46 Approved by: Abraham Shoemaker M.D. on 11/29/2021 at 11:52
== END ==
PROVIDERS: Family Provider Registered Nurse; PCP Registered Nurse; Referring Provider Registered Nurse; Visit Provider Registered Nurse
DX: R06.02 Shortness of breath (principal); I25.10 Atherosclerotic heart disease of native coronary artery without angina pectoris; Z95.2 Presence of prosthetic heart valve
CPT/HCPCS: 71250

== ENCOUNTER → 2022-04-22 06:44 | Outpatient (CLI) | payer MEDICARE, OTHER, SELFPAY ==
[2022-04-22 10:32] LABS: Blood Urea Nitrogen 15 mg/dL (9-20); Calcium 8.8 mg/dL (8.4-10.2); Carbon Dioxide 31 mmol/L (22-32); Chloride 96 mmol/L (98-107); Estimated Glomerular Filt Rate > 60 mL/min (>60); Glucose 159 mg/dL (80-110); HEMOLYSIS < 15 (0-50); Potassium 4.3 mmol/L (3.4-5.1); Sodium 132 mmol/L (137-145)
== END ==
PROVIDERS: Family Provider Registered Nurse; PCP Registered Nurse; Referring Provider Internal Medicine; Visit Provider Internal Medicine
DX: I35.9 Nonrheumatic aortic valve disorder, unspecified (principal); Q23.1 Congenital insufficiency of aortic valve
CPT/HCPCS: 36415; 80048

== ENCOUNTER → 2022-05-30 14:27 | Outpatient (CLI) | payer MEDICARE, OTHER, SELFPAY ==
[2022-05-30 17:42] LABS: TSH w/ Reflex to FT4 2.09 uIU/mL (0.47-4.68)
[2022-05-31 17:19] LABS: Folate > 20.0 ng/mL (2.76-20.0); Vitamin B12 703 pg/mL (239-931)
== END ==
PROVIDERS: Family Provider Registered Nurse; PCP Registered Nurse; Referring Provider Psychiatry & Neurology Neurology; Visit Provider Psychiatry & Neurology Neurology
DX: R41.9 Unspecified symptoms and signs involving cognitive functions and awareness (principal)
CPT/HCPCS: 36415; 82607; 82746; 84443

== ENCOUNTER → 2022-06-01 11:55 | Outpatient (CLI) | payer MEDICARE, OTHER, SELFPAY ==
--- NOTE | 2022-06-01 | DI.MRI.S_ITS ---
PROCEDURE: MR STROKE Pre- and post-contrast brain MRI, non-contrast brain MR angiogram, pre- and postcontrast neck MR angiogram INDICATIONS: Unspecified symptoms involving cognitive functions TECHNIQUE: Brain: Noncontrast axial T1 spin echo, axial T2 fast spin echo, sagittal and axial FLAIR, coronal T2 fast spin echo, axial gradient echo, axial diffusion and ADC through the brain. After the administration of contrast, axial 3D VIBE of the cranial vasculature and brain. Brain MRA: Non-contrast 3-D time of flight MR angiogram, with multiple ltdfjpy-jvwuniziw-kgffpsmwlc (MIP) reformats performed. Neck MRA: Axial and sagittal TruFISP through the neck. Coronal dynamic MR angiogram during administration of contrast in the arterial and venous phases, with 3-dimenstional eewllai-ocztuyurh-nvmssfqkub (MIP) reformats constructed from subtraction images. COMPARISON: None. FINDINGS: Image quality: Excellent. BRAIN: CSF spaces: Ventricles are normal in size and shape. Basal cisterns are patent. No extra-axial fluid collections. Brain: No intracranial bleeds or mass effects. [place]-white matter interface is normal. Diffusion weighted images show no acute ischemic insults. A subcentimeter focus of T2/FLAIR signal in the left external capsule consistent with a remote lacunar infarct. Brainstem appears normal. Normal intravascular flow voids are present. No abnormal intracranial enhancement. Skull and face: Calvarial marrow signal is normal. Orbits appear normal. Sinuses: Sinuses and mastoids are clear. BRAIN MR ANGIOGRAM: Anterior circulation: Intracranial internal carotid arteries are normal in size and enhancement. The flow within the paired anterior cerebral arteries is normal and symmetric. The flow within the middle cerebral arteries is normal and symmetric. The anterior communicating artery is seen. No stenoses, occlusions, or aneurysms. Posterior circulation: The visualized portions of the vertebral arteries demonstrate normal caliber, and join to form a normal appearing basilar artery. The flow within the posterior cerebral arteries is normal and symmetric. No stenoses, occlusions, or aneurysms. NECK MR ANGIOGRAM: Carotids: Great vessels demonstrate a conventional anatomy as they arise from the aortic arch. The origins of the common carotid arteries appear patent. The calibers and courses of both common carotid arteries are normal. The bifurcation regions appear normal bilaterally. The internal carotid arteries demonstrate normal course and caliber. Posterior circulation: The origins of the vertebral arteries appear patent. More superior portions of both vertebral arteries demonstrate normal course and caliber, and join to form a normal appearing basilar artery. Miscellaneous: Subclavian arteries appear patent. Pre-contrast images through the neck show no soft tissue abnormalities. IMPRESSION: BRAIN MRI: 1. No acute intracranial abnormality. No acute ischemia. 2. Remote lacunar infarct in the left external capsule, BRAIN MR ANGIOGRAM: Normal NECK MR ANGIOGRAM: Normal Dictated by: Jaydon An M.D. on 06/01/2022 at 13:11 Approved by: Jaydon An M.D. on 06/01/2022 at 13:23
== END ==
PROVIDERS: Family Provider Registered Nurse; PCP Registered Nurse; Referring Provider Psychiatry & Neurology Neurology; Visit Provider Psychiatry & Neurology Neurology
DX: R41.9 Unspecified symptoms and signs involving cognitive functions and awareness (principal); H54.62 Unqualified visual loss, left eye, normal vision right eye
CPT/HCPCS: 70548; 70553

== ENCOUNTER → 2022-06-01 13:06 | Outpatient (CLI) | payer MEDICARE, OTHER, SELFPAY ==
[2022-06-03 07:31] LABS: PSA Free % 24.7 % (.); PSA, Total 4.9 ng/mL (0.0-4.0)
== END ==
PROVIDERS: Family Provider Registered Nurse; PCP Registered Nurse; Referring Provider Urology; Visit Provider Urology
DX: Z12.5 Encounter for screening for malignant neoplasm of prostate (principal)
CPT/HCPCS: 36415; 84153; 84154; G0103

== ENCOUNTER → 2023-05-13 07:52 | Outpatient (CLI) | payer MEDICARE, OTHER, SELFPAY ==
[2023-05-13 09:27] LABS: Add Manual Diff / Slide Review NO; Basophils Absolute Auto 0 /uL (0-100); Basophils Percent Auto 0.5 % (0-2); Eosinophils Absolute Auto 200 /uL (0-450); Eosinophils Percent Auto 2.4 % (2-4); Hematocrit 40.8 % (41-53); Hemoglobin 14.1 g/dL (13.5-17.5); Lymphocytes Absolute Auto 1000 /uL (1100-4500); Lymphocytes Percent Auto 16.7 % (25-40); Mean Corpuscular HGB Conc 34.5 % (30-36); Mean Corpuscular Hemoglobin 30.9 PG (26-34); Mean Corpuscular Volume 89.6 fL (80-100); Monocytes Absolute Auto 700 /uL (0-900); Neutrophils Absolute Auto 4300 /uL (1500-7000); Neutrophils Percent Auto 69.4 % (50-75); Platelet Count 289 X10^3/uL (150-400); Red Blood Cell Count 4.56 X10^6/uL (4.5-5.9); Red Cell Distribution Width 13.2 % (11.6-14.8); White Blood Cell Count 6.2 X10^3/uL (4.5-11.0)
[2023-05-13 09:38] LABS: Hemoglobin A1C% w Est Avg Glu 6.8 % (4.0-6.0)
[2023-05-13 09:48] LABS: Alanine Aminotransferase 24 IU/L (<50); Albumin Globulin Ratio 1.4 (1.0-2.8); Alkaline Phosphatase 63 U/L (38-126); Aspartate Aminotransferase 35 IU/L (17-59); Bilirubin Total 0.9 mg/dL (0.2-1.3); Blood Urea Nitrogen 20 mg/dL (9-20); Calcium 9.7 mg/dL (8.4-10.2); Carbon Dioxide 31 mmol/L (22-32); Chloride 97 mmol/L (98-107); Cholesterol 171 mg/dL (140-199); Estimated Glomerular Filt Rate > 60 mL/min (>60); Globulin 2.8 g/dL (1.7-4.1); Glucose 186 mg/dL (80-110); HDL Cholesterol 73 mg/dL (40-60); HEMOLYSIS < 15 (0-50); LDL Cholesterol Calculated 83 mg/dL (<100); Potassium 4.8 mmol/L (3.4-5.1); Sodium 133 mmol/L (137-145); Total Protein 6.8 g/dL (6.3-8.2); Triglycerides 73 mg/dL (35-150); VLDL Cholesterol Calculated 15 mg/dL (2-30)
[2023-05-13 10:17] LABS: Thyroid Stimulating Hormone 2.72 uIU/mL (0.47-4.68)
[2023-05-13 11:54] LABS: Creatinine Urine Random 116.1 mg/dL
[2023-05-13 12:00] LABS: Microalbumi Creatinin Ratio Ur 22.3 ug/mg CR (<30); Microalbumin Urine Random 2.6 mg/dL (0-1.6)
== END ==
PROVIDERS: Family Provider Registered Nurse; PCP Registered Nurse; Referring Provider Internal Medicine Endocrinology, Diabetes & Metabolism; Visit Provider Internal Medicine Endocrinology, Diabetes & Metabolism
DX: E10.9 Type 1 diabetes mellitus without complications (principal)
CPT/HCPCS: 36415; 80053; 80061; 82043; 82570; 83036; 84443; 85025

== ENCOUNTER → 2023-07-25 06:54 | Outpatient (CLI) | payer MEDICARE, OTHER, SELFPAY ==
[2023-07-25 08:12] LABS: Add Manual Diff / Slide Review NO; Basophils Absolute Auto 0 /uL (0-100); Basophils Percent Auto 0.7 % (0-2); Eosinophils Absolute Auto 100 /uL (0-450); Eosinophils Percent Auto 2.4 % (2-4); Hematocrit 40.6 % (41-53); Lymphocytes Absolute Auto 1400 /uL (1100-4500); Lymphocytes Percent Auto 26.8 % (25-40); Mean Corpuscular HGB Conc 34.6 % (30-36); Mean Corpuscular Hemoglobin 31.4 PG (26-34); Mean Corpuscular Volume 90.7 fL (80-100); Monocytes Absolute Auto 600 /uL (0-900); Monocytes Percent Auto 10.3 % (3-14); Neutrophils Absolute Auto 3200 /uL (1500-7000); Neutrophils Percent Auto 59.8 % (50-75); Platelet Count 292 X10^3/uL (150-400); Red Blood Cell Count 4.48 X10^6/uL (4.5-5.9); Red Cell Distribution Width 13.4 % (11.6-14.8); White Blood Cell Count 5.4 X10^3/uL (4.5-11.0)
[2023-07-25 08:32] LABS: Hemoglobin A1C% w Est Avg Glu 6.5 % (4.0-6.0)
[2023-07-25 08:37] LABS: Alanine Aminotransferase 25 IU/L (<50); Albumin Globulin Ratio 1.5 (1.0-2.8); Alkaline Phosphatase 71 U/L (38-126); Aspartate Aminotransferase 40 IU/L (17-59); BUN Creatinine Ratio 18.6 (6-22); Bilirubin Total 0.9 mg/dL (0.2-1.3); Blood Urea Nitrogen 18 mg/dL (9-20); Calcium 9.9 mg/dL (8.4-10.2); Carbon Dioxide 29 mmol/L (22-32); Chloride 96 mmol/L (98-107); Cholesterol 189 mg/dL (140-199); Estimated Glomerular Filt Rate > 60 mL/min (>60); Globulin 2.7 g/dL (1.7-4.1); Glucose 164 mg/dL (80-110); HDL Cholesterol 84 mg/dL (40-60); HEMOLYSIS < 15 (0-50); LDL Cholesterol Calculated 92 mg/dL (<100); Potassium 4.7 mmol/L (3.4-5.1); Sodium 132 mmol/L (137-145); Total Protein 6.7 g/dL (6.3-8.2); Triglycerides 66 mg/dL (35-150)
[2023-07-25 09:00] LABS: Thyroid Stimulating Hormone 2.14 uIU/mL (0.47-4.68)
[2023-07-25 09:23] LABS: Vitamin B12 876 pg/mL (239-931)
[2023-07-25 22:11] LABS: HEMOLYSIS < 15 (0-50); Iron 95 ug/dL (49-181)
[2023-07-25 22:21] LABS: Percent Iron Saturation 31 % (20-50); Total Iron Binding Capacity 308 ug/dL (261-462); Transferrin 255 mg/dL (206-381)
[2023-07-25 22:47] LABS: Ferritin 72 ng/mL (18-464)
== END ==
LOC: LAB 06:55
PROVIDERS: Family Provider Registered Nurse; PCP Registered Nurse; Referring Provider Registered Nurse; Visit Provider Registered Nurse
DX: E10.9 Type 1 diabetes mellitus without complications (principal); I10 Essential (primary) hypertension; I48.19 Other persistent atrial fibrillation; I40.1 Isolated myocarditis; R41.0 Disorientation, unspecified
CPT/HCPCS: 36415; 80053; 80061; 82607; 82728; 83036; 83540; 83550; 84443; 85025

== ENCOUNTER → 2023-08-07 06:59 | Outpatient (CLI) | payer MEDICARE, OTHER, SELFPAY ==
[2023-08-07 08:18] LABS: Prostate Specific Antigen 5.68 ng/mL (0.10-4.00)
== END ==
LOC: LAB 07:01
PROVIDERS: Family Provider Registered Nurse; PCP Registered Nurse; Referring Provider Urology; Visit Provider Urology
DX: Z12.5 Encounter for screening for malignant neoplasm of prostate (principal)
CPT/HCPCS: 36415; 84153; G0103

== ENCOUNTER → 2023-08-08 15:30 | Outpatient (CLI) | payer MEDICARE, OTHER, SELFPAY ==
--- NOTE | 2023-08-08 | DI.MRI.S_ITS ---
PROCEDURE: MR HEAD/BRAIN WO/W CON INDICATIONS: DISORIENTATION TECHNIQUE: Noncontrast axial T1 spin echo, axial T2 fast spin echo, sagittal and axial FLAIR, coronal T2 fast spin echo, axial gradient echo, axial diffusion and ADC through the brain. After the administration of contrast, axial and coronal and sagittal T1 spin echo with fat saturation through the brain. COMPARISON: [facility], MR, MR HEAD/BRAIN WO/W CON, 09/16/2021, 18:19. [facility], MR, MR STROKE, 06/01/2022, 12:17. FINDINGS: Image quality: Excellent. CSF spaces: Basal cisterns are patent. No extra-axial fluid collections. Ventricles are normal in size and shape. Brain: No midline shift. No intracranial bleeds or masses. No abnormal intracranial enhancement. There is cerebral volume loss for age. There is periventricular white matter chronic small vessel ischemic change. The brainstem appears normal. Diffusion-weighted images demonstrate no acute infarct. No chronic ischemic insults. Normal intravascular flow voids are present. Skull and face: Calvarial marrow is normal in signal. Orbits appear normal. Sinuses: Mild scattered mucosal thickening most prominent in the left maxillary sinus. Fluid is present within the mastoid air cells, right greater than. Recommend correlation to symptoms mastoiditis. Overall appearance is stable. IMPRESSION: 1. No acute intracranial process. 2. Moderate to severe atrophy and chronic microvascular ischemic changes. Dictated by: Tisha Mukherjee M.D. on 08/08/2023 at 21:52 Approved by: Tisha Mukherjee M.D. on 08/08/2023 at 21:53
== END ==
LOC: MRI 15:31
PROVIDERS: Family Provider Registered Nurse; PCP Registered Nurse; Referring Provider Registered Nurse; Visit Provider Registered Nurse
DX: R41.0 Disorientation, unspecified (principal)
CPT/HCPCS: 70553; A9579

== ENCOUNTER → 2023-08-18 18:41 | Outpatient (CLI) | payer MEDICARE, OTHER, SELFPAY ==
--- NOTE | 2023-08-18 | DI.MRI.S_ITS ---
PROCEDURE: MR PELIS WO/W CON INDICATIONS: Elevated prostate specific antigen [PSA] TECHNIQUE: Coronal HASTE, axial T1 FSE with fat saturation, 3-plane nonbreath-hold T2 FSE. After the administration of contrast, dynamic axial, delayed axial and coronal VIBE or 2-D FLASH with fat saturation through the pelvis. Diffusion weighted imaging and ADC was performed. COMPARISON: None. FINDINGS: Image quality: Diffusion weighted and dynamic contrast enhanced images are diagnostic. Prostate: Gland size is 3.6 x 3.8 x 6.4 cm; ellipsoid gland volume is 46 mL. Lesion 1: Location: Right posterior transition zone, mid gland to apex, on axial series 5, image 17 and coronal series 6, image 12. Size: 0.8 x 0.8 cm. T2W signal: Hypointense. Partially circumscribed. DWI signal: Markedly hyperintense. ADC signal: Markedly hypointense. Enhancement: Yes. Extracapsular extension: No. No neurovascular involvement. PI-RADS score: 3 Genitourinary system: Bladder wall thickness is normal. Distal ureters are non distended. Bowel and peritoneum: No pathologic free pelvic fluid. Inferior colon and small bowel loops are normal in caliber. Nodes and vessels: No pelvic or inguinal adenopathy by size criteria. Iliac vessels are normal in caliber. Soft tissues: No inguinal hernias. Bones: Marrow demonstrates normal overall signal, without lesions to suggest metastases. IMPRESSION: PI-RADS 3 lesion in the right posterior transition zone of the mid gland to apex. No pelvic lymphadenopathy by size criteria. No aggressive osseous abnormality. Dictated by: Jose Santos M.D. on 08/21/2023 at 8:37 Approved by: Jose Santos M.D. on 08/21/2023 at 8:40
== END ==
PROVIDERS: Family Provider Registered Nurse; PCP Registered Nurse; Referring Provider Urology; Visit Provider Urology
DX: N42.9 Disorder of prostate, unspecified (principal); R97.20 Elevated prostate specific antigen [PSA]
CPT/HCPCS: 72197; A9579

== ENCOUNTER → 2024-10-10 15:08 | Outpatient (CLI) | payer MEDICARE, OTHER, SELFPAY ==
--- NOTE | 2024-10-10 15:10 | DI.CT.S_ITS ---
PROCEDURE: CT ANGIO CHEST INDICATIONS: Aortic valve, TECHNIQUE: After the administration of intravenous contrast, 2.5 mm thick sections acquired from the lung apices to the posterior lung bases. Maximum intensity projection (MIP) oblique sagittal reformats were then acquired parallel to the aortic arch. For radiation dose reduction, the following was used: automated exposure control. COMPARISON: None. FINDINGS: Image quality: Excellent. Aorta: Aorta and great vessels are normal in size. No mural irregularity or contrast extravasation to suggest aortic injury. Ascending aorta measures 3.6 cm. Classic three-vessel arch anatomy. Great vessel origins are widely patent. Transverse arch and descending thoracic aorta are of normal caliber. SMA, celiac, and bilateral renal arteries are patent. Lower Neck: No enlarged lymph nodes. Thyroid: No thyroid nodules which require sonographic follow up, per consensus guidelines. Axillae: No enlarged lymph nodes. Chest Wall: Unremarkable. Bones: Unremarkable. Lungs and Pleura: No pneumothorax or pleural effusions. 4 mm subpleural pulmonary nodule, posterior right upper lobe, image 110 of series 5. No other pulmonary nodules identified. Heart: Heart size is normal. No pericardial effusion. Aortic valve prosthesis. Thoracic Vessels: Pulmonary arteries demonstrate normal size. Mediastinum and Annemarie: No enlarged lymph nodes. Esophagus: No wall thickening. No hiatal hernia. Upper Abdomen: Visualized upper abdomen solid organs and bowel loops appear normal. There is a very large incidental exophytic cyst off of the left kidney which on axial image 194 of series 4 measures 10.3 x 12.5 cm. IMPRESSION: 1. Normal caliber aorta. 2. Solitary 4 mm pulmonary nodule, right upper lobe. 3. No acute pulmonary process. Comment: Consider optional 1 year follow-up CT chest to follow up the pulmonary nodule if this patient has risk factors for malignancy. Dictated by: Abraham Shoemaker M.D. on 10/11/2024 at 9:52 Approved by: Abraham Shoemaker M.D. on 10/11/2024 at 9:56
--- NOTE | 2024-10-10 15:11 | DI.ECHO.S_ITS ---
[facility]+ [facility] : : [address] : : [place] : : [id number] : : Phone: [phone] Echocardiogram Report + + :Name: GRAY QUINONEZ Study Date: 10/10/2024 Height: 68 in : :[facility] ReadingLocation: Weight: 165 lb : : Gender: Male BSA: 1.9 m2 : :: 1950 Age: 73 yrs BP: 207/78 mmHg: :Reason For Study: AORTIC VALVE REPLACEMENT : :Ordering Physician: EDILBERTO, : :INES Martínez Performed By: Francisco Javier Martinez : :Referring: INES MANRIQUE : + + Interpretation Summary The ejection fraction is estimated to be 55-60%. Diastolic parameters suggest probable normal left ventricular diastolic function and normal filling pressures. The left atrium is mildly dilated. The right ventricle is normal in size and function. There is a well-seated, normally functioning mechanical aortic valve. Pulmonary artery pressures cannot be estimated because of the lack of a measurable TR jet velocity but the IVC suggests a CVP of around 3 mmHg. Procedure: A two-dimensional transthoracic echocardiogram with color flow and Doppler was performed. The study quality was technically good. There is no prior echocardiogram noted for this patient. The patient was in normal sinus rhythm during the exam. Left Ventricle: The left ventricle is normal in size. There is normal left ventricular wall thickness. There is no ventricular septal defect visualized. The ejection fraction is estimated to be 55-60%. Septal motion is consistent with post-operative state. Diastolic parameters suggest probable normal left ventricular diastolic function and normal filling pressures. Right Ventricle: The right ventricle is normal in size and function. Atria: The left atrium is mildly dilated. Right atrial size is normal. There is no Doppler evidence for an interatrial shunt. Mitral Valve: There is mild to moderate mitral annular calcification. The mitral valve leaflets are moderately calcified. The mitral valve leaflets appear mildly thickened, but open well. There is trace mitral regurgitation. Aortic Valve: There is a mechanical aortic valve. The peak aortic velocity is 2.9 m/sec. The aortic valve mean gradient is 16 mmHg. There is trace aortic regurgitation. Tricuspid Valve: The tricuspid valve leaflets are thin and pliable. No tricuspid regurgitation. Pulmonary artery pressures cannot be estimated because of the lack of a measurable TR jet velocity but the IVC suggests a CVP of around 3 mmHg. Pulmonic Valve: The pulmonic valve is not well seen, but is grossly normal. There is no pulmonic valvular regurgitation. Great Vessels: The aortic root is normal size. The dimensions of the ascending aorta are normal. The pulmonary artery is not well visualized, but is probably normal size. The IVC is of normal diameter and collapses greater than 50% with a sniff. This suggests a low right atrial pressure of 3 mm Hg. Pericardium/ Pleura There is no pericardial effusion. There is no pleural effusion. MMode/2D Measurements & Calculations LVIDd: 4.7 cm LVOT diam: 1.6 cm LVIDs: 3.3 cm Ao root diam: 3.4 cm FS: 29.9 % asc Aorta Diam: 3.5 cm EPSS: 0.61 cm Ao Arch Diam (Prox Trans): 1.6 cm IVSd: 0.99 cm LVPWd: 0.96 cm LV rodriguez. diameter/BSA (cm/m^2): 2.5 LV sys. diameter/BSA (cm/m^2): 1.7 LA A2 area: 22.3 cm2 RA long axis: 4.6 cm LA A4 area: 20.2 cm2 RA area: 14.2 cm2 LA length (vol): 5.5 cm RA vol: 37.7 ml LA vol: 68.8 ml RA : 20.0 ml/m2 LA vol index: 36.5 ml/m2 IVC diam: 1.1 cm RVD1 (basal): 3.9 cm RVD2 (mid): 3.1 cm TAPSE: 2.2 cm Doppler Measurements & Calculations Ao V2 max: 288.5 cm/sec LVOT Max Jefferson: 125.5 cm/sec Ao V2 mean: 179.1 cm/sec LV V1 max P.3 mmHg Ao max P.3 mmHg LV V1 VTI: 30.6 cm Ao mean P.9 mmHg JOJO(I,D): 1.1 cm2 Ao V2 VTI: 60.0 cm JOJO(V,D): 0.93 cm2 sev ratio: 0.51 JOJO indexed to BSA (cm^2/m^2): 0.58 MV E max jefferson: 99.8 cm/sec PA V2 max: 98.5 cm/sec MV A max jefferson: 84.2 cm/sec PA V2 mean: 67.3 cm/sec MV E/A: 1.2 PA mean P.1 mmHg Med Peak E' Jefferson: 7.8 cm/sec PA pr(Accel): 29.3 mmHg E/E' med: 12.8 Lat Peak E' Jefferson: 9.8 cm/sec E/E' lat: 10.2 E/e' average: 11.5 MV dec time: 0.25 sec SV(OT): 65.0 ml Reading Physician:12:57 PM
[2024-10-10 15:38] LABS: Estimated Glomerular Filt Rate > 60 mL/min (>60)
== END ==
PROVIDERS: Family Provider Registered Nurse; PCP Registered Nurse; Referring Provider Internal Medicine Cardiovascular Disease; Visit Provider Internal Medicine Cardiovascular Disease
DX: R91.1 Solitary pulmonary nodule (principal); N28.1 Cyst of kidney, acquired; Q23.81 Bicuspid aortic valve; Z95.2 Presence of prosthetic heart valve
CPT/HCPCS: 36415; 71275; 82565; 93306; Q9967